=== PATIENT | female | born 1945 | race Caucasian/White ===

== ENCOUNTER 2020-01-04 17:52 | Observation (INO) ==
[2020-01-04 19:37] LABS: Basophils # 0.1 K/mcL (0.0-0.2); Basophils % 0.8 %; Eosinophils # 0.4 K/mcL (0.0-0.6); Eosinophils % 4.2 %; Hematocrit 41.8 % (35.3-44.9); Immature Granulocytes % 0.2 % (0-4); Lymphocytes # 2.2 K/mcL (0.6-4.6); Lymphocytes % 26.7 %; Mean Corpuscular HGB Conc 33.5 g/dL (31.6-35.5); Mean Corpuscular Hemoglobin 29.9 pg (28.0-33.3); Mean Corpuscular Volume 89.3 fL (83.0-100.0); Mean Platelet Volume 9.8 fL (9.4-12.4); Monocytes # 0.8 K/mcL (0.0-1.3); Neutrophils # 4.9 K/mcL (1.6-8.9); Platelet Count 322 K/mcL (140-400); Red Blood Count 4.68 M/mcL (3.82-4.97); Red Cell Distribution Width 13.9 % (11.5-14.5); Segmented Neutrophils % 59.1 %; White Blood Count 8.4 K/mcL (4.3-11.1)
[2020-01-04 19:45] LABS: Prothrombin Time 11.6 Seconds (9.4-12.1)
[2020-01-04 19:57] LABS: Alanine Aminotransferase 15 Units/L (7-52); Albumin/Globulin Ratio 1.3 (1.1-2.2); Alkaline Phosphatase 76 Units/L (34-104); Aspartate Amino Transferase 20 Units/L (13-39); BUN/Creatinine Ratio 16 (6-26); Bilirubin,Total 0.9 mg/dL (0.3-1.0); Blood Urea Nitrogen 15 mg/dL (8-23); Calcium 9.3 mg/dL (8.6-10.3); Carbon Dioxide 27 mEq/L (23-29); Chloride 99 mEq/L (98-107); Globulin 3.2 g/dL (2.4-3.5); Glucose 102 mg/dL (70-105); Osmolality,Calculated 285 (280-300); Potassium 3.1 mEq/L (3.5-5.1); Sodium 137 mEq/L (136-145); Total Protein 7.2 g/dL (6.4-8.9); eGFR For African Americans > 60 (> 60); eGFR For Non-African Americans > 60 (> 60)
[2020-01-04] MEDS ORDERED: Potassium Chloride Elixir 20 MEQ/15 ML UDC PO ONE (20:52)
[2020-01-04] MEDS ORDERED: Naloxone 0.4 MG/ML INJ IVP PRN (22:24)
[2020-01-04] MEDS ORDERED: Dextrose Gel 15 GM/37.5 ML TUBE PO PRN ×2 (22:28)
[2020-01-04] MEDS ORDERED: *HR* Dextrose 50 % in Water (Syg) 50 ML SYRINGE IVP PRN (22:28)
[2020-01-04] MEDS ORDERED: D5% in Water 1,000 ML IVC PRN (22:28)
[2020-01-05] MEDS: Pantoprazole 40 MG VIAL IVP SCH ×2 (00:21→06:57)
[2020-01-05] MEDS: Insulin LISPRO 300 UNITS/3 ML VIAL SQ SCH ×2 (00:22→06:52)
[2020-01-05 05:43] LABS: Hematocrit 40.5 % (35.3-44.9); Hemoglobin 13.2 g/dL (11.5-15.4); Mean Corpuscular HGB Conc 32.6 g/dL (31.6-35.5); Mean Corpuscular Hemoglobin 29.9 pg (28.0-33.3); Mean Corpuscular Volume 91.8 fL (83.0-100.0); Mean Platelet Volume 9.5 fL (9.4-12.4); Platelet Count 288 K/mcL (140-400); Red Blood Count 4.41 M/mcL (3.82-4.97); Red Cell Distribution Width 13.9 % (11.5-14.5); White Blood Count 6.2 K/mcL (4.3-11.1)
[2020-01-05 06:00] LABS: BUN/Creatinine Ratio 15 (6-26); Blood Urea Nitrogen 12 mg/dL (8-23); Calcium 9.3 mg/dL (8.6-10.3); Carbon Dioxide 30 mEq/L (23-29); Chloride 102 mEq/L (98-107); Glucose 127 mg/dL (70-105); Osmolality,Calculated 287 (280-300); Potassium 3.7 mEq/L (3.5-5.1); Sodium 138 mEq/L (136-145); eGFR For African Americans > 60 (> 60); eGFR For Non-African Americans > 60 (> 60)
[2020-01-05] MEDS ORDERED: Propofol 500 MG/50 ML INFUS..BTL ONE (09:31)
[2020-01-05] MEDS ORDERED: Lidocaine -MPF 2% 2 ML VIAL ONE (09:33)
[2020-01-05 10:58] VITALS: BP 169/90
[2020-01-05] MEDS ORDERED: amLODIPine 5 MG TABLET PO SCH (11:00)
[2020-01-05] MEDS ORDERED: Aspirin Enteric Coated 81 MG Tablet PO SCH (11:15)
[2020-01-05] MEDS ORDERED: Furosemide 20 MG TABLET PO SCH (11:15)
[2020-01-05] MEDS ORDERED: Isosorbide MONOnitrate (24 HR) 30 MG TAB.ER.24H PO SCH (11:15)
[2020-01-05] MEDS ORDERED: NON-FORMULARY MEDICATION 1 EACH EACH (Pantoprazole Sodium [Protonix] 40 MG) PO SCH (11:15)
[2020-01-05] MEDS ORDERED: FLUoxetine 20 MG CAPSULE PO SCH (11:15)
== END 2020-01-05 14:18 | disposition home or self-care (01) ==
LOC: EMEROOARM 17:52 → 3ANU 17:52 → SUATTDRO 23:07 → 3ANU 01-05 00:05
PROVIDERS: ADMIT Family Medicine; ATTEND Internal Medicine

== ENCOUNTER 2021-08-26 20:17 | Inpatient (IN) ==
[2021-08-26] MEDS ORDERED: Ipratropium/Albuterol Neb 3 ML IH ONE (20:27)
[2021-08-26 20:51] LABS: Basophils % 0.2 %; Eosinophils # 0.1 K/mcL (0.0-0.6); Hemoglobin 12.6 g/dL (11.5-15.4); Immature Granulocytes % 0.8 % (0-4); Lymphocytes # 0.9 K/mcL (0.6-4.6); Lymphocytes % 9.9 %; Mean Corpuscular HGB Conc 32.3 g/dL (31.6-35.5); Mean Corpuscular Hemoglobin 28.7 pg (28.0-33.3); Mean Corpuscular Volume 88.8 fL (83.0-100.0); Mean Platelet Volume 9.5 fL (9.4-12.4); Monocytes # 0.4 K/mcL (0.0-1.3); Monocytes % 5.1 %; Neutrophils # 7.2 K/mcL (1.6-8.9); Platelet Count 314 K/mcL (140-400); Red Blood Count 4.39 M/mcL (3.82-4.97); Red Cell Distribution Width 13.7 % (11.5-14.5); White Blood Count 8.6 K/mcL (4.3-11.1)
[2021-08-26 21:06] LABS: BUN/Creatinine Ratio 19 (6-26); Blood Urea Nitrogen 17 mg/dL (8-23); Calcium 8.9 mg/dL (8.6-10.3); Carbon Dioxide 28 mEq/L (23-29); Chloride 92 mEq/L (98-107); Glucose 105 mg/dL (70-105); Osmolality,Calculated 278 (280-300); Potassium 3.7 mEq/L (3.5-5.1); Sodium 133 mEq/L (136-145); Troponin I 0.03 ng/mL (< 0.04); eGFR For African Americans > 60 (> 60); eGFR For Non-African Americans > 60 (> 60)
[2021-08-26] MEDS ORDERED: Naloxone 0.4 MG/ML INJ IVP PRN (22:12)
[2021-08-26] MEDS ORDERED: *HR* OxyCODONE Immed Rel 5 MG TABLET PO PRN (22:12)
[2021-08-26] MEDS ORDERED: Dextrose Gel 15 GM/37.5 ML TUBE PO PRN ×2 (22:14)
[2021-08-26] MEDS ORDERED: D5% in Water 1,000 ML IVC PRN (22:14)
[2021-08-26 23:09] LABS: Amorphous Sediment,Urine Few per hpf (None-Few); Bacteria,Urine Few per hpf (None-Few); Bilirubin,Urine Small (Negative); Blood,Urine Small (Negative); Clarity,Urine Turbid (Clear); Color,Urine Yellow (Yellow); Glucose,Urine (UA) Normal (Normal); Hyaline Casts,Urine Few per lpf (None Seen); Ketones,Urine 10 mg/dL (Negative); Leukocyte Esterase,Urine Negative (Negative); Mucus,Urine Few per lpf (None-Few); Nitrite,Urine Negative (Negative); Protein,Urine 100 mg/dL (Neg-Trace); Specific Gravity,Urine 1.029 (1.010-1.025); Squamous Epithelial Cell,Urine Few per hpf (None-Few); Urobilinogen,Urine >=8.0 mg/dL (Normal)
[2021-08-27 07:22] LABS: Hematocrit 35.5 % (35.3-44.9); Hemoglobin 11.8 g/dL (11.5-15.4); Mean Corpuscular HGB Conc 33.2 g/dL (31.6-35.5); Mean Corpuscular Hemoglobin 29.5 pg (28.0-33.3); Mean Corpuscular Volume 88.8 fL (83.0-100.0); Mean Platelet Volume 9.9 fL (9.4-12.4); Platelet Count 281 K/mcL (140-400); Red Cell Distribution Width 13.5 % (11.5-14.5); White Blood Count 5.9 K/mcL (4.3-11.1)
[2021-08-27 07:31] LABS: INR 1.4; Prothrombin Time 15.8 Seconds (9.4-12.1)
[2021-08-27] MEDS: Insulin LISPRO 300 UNITS/3 ML VIAL SUBQ SCH ×5 (08:02→20:20)
[2021-08-27] MEDS: *HR* Enoxaparin 40 MG/0.4 ML SYRINGE SQ SCH ×2 (08:03→10:44)
[2021-08-27] MEDS ORDERED: Furosemide 40 MG TABLET PO SCH (09:00)
[2021-08-27] MEDS ORDERED: Dexamethasone Sodium Phos/PF 10 MG/ML VIAL IVP SCH (09:00)
[2021-08-27 09:54] LABS: Chol/HDL Ratio 2.2 (0-4.9); Magnesium 2.2 mg/dL (1.6-2.6); Phosphorous 4.3 mg/dL (2.7-4.5)
[2021-08-27] MEDS: Aspirin Enteric Coated 81 MG Tablet PO SCH (10:56)
[2021-08-27] MEDS ORDERED: Nitroglycerin 0.4 MG TAB.SUBL SL PRN (14:45)
[2021-08-27] MEDS ORDERED: NON-FORMULARY MEDICATION 1 EACH EACH (Ondansetron Hcl [Ondansetron Hcl] 4 MG Tablet) PO PRN (16:46)
[2021-08-27] MEDS ORDERED: Isosorbide MONOnitrate (24 HR) 30 MG TAB.ER.24H PO PRN (16:46)
[2021-08-27] MEDS: *HR* Labetalol 20 MG/4 ML SYRINGE IVP PRN (17:08)
[2021-08-27] MEDS: Acetaminophen 325 MG TABLET PO PRN (17:09)
[2021-08-28] MEDS ORDERED: *HR* LORazepam 2 MG/ML VIAL IVP ONE (06:09)
[2021-08-28 06:35] LABS: Hematocrit 36.6 % (35.3-44.9); Hemoglobin 11.8 g/dL (11.5-15.4); Mean Corpuscular HGB Conc 32.2 g/dL (31.6-35.5); Mean Corpuscular Hemoglobin 29.1 pg (28.0-33.3); Mean Corpuscular Volume 90.4 fL (83.0-100.0); Mean Platelet Volume 10.3 fL (9.4-12.4); Platelet Count 334 K/mcL (140-400); Red Blood Count 4.05 M/mcL (3.82-4.97); Red Cell Distribution Width 13.6 % (11.5-14.5)
[2021-08-28 06:59] LABS: Potassium 5.2 mEq/L (3.5-5.1)
[2021-08-28] MEDS ORDERED: *HR* Heparin 5,000 UNIT/ML VIAL IVP ONE (07:56)
[2021-08-28] MEDS ORDERED: *HR* Heparin 5,000 UNIT/ML VIAL IVP PRN (07:56)
[2021-08-28] MEDS ORDERED: SODIUM ZIRCONIUM CYCLOSILICATE 5 GM POWD.PACK PO ONE (08:11)
[2021-08-28] MEDS: Insulin LISPRO 300 UNITS/3 ML VIAL SUBQ SCH ×4 (08:18→19:56)
[2021-08-28 09:09] LABS: Hematocrit 36.4 % (35.3-44.9); Hemoglobin 11.8 g/dL (11.5-15.4); Mean Corpuscular HGB Conc 32.4 g/dL (31.6-35.5); Mean Corpuscular Hemoglobin 28.7 pg (28.0-33.3); Mean Corpuscular Volume 88.6 fL (83.0-100.0); Mean Platelet Volume 9.4 fL (9.4-12.4); Platelet Count 372 K/mcL (140-400); Red Blood Count 4.11 M/mcL (3.82-4.97); Red Cell Distribution Width 13.5 % (11.5-14.5); White Blood Count 9.2 K/mcL (4.3-11.1)
[2021-08-28 09:17] LABS: Heparin anti-factor XA UFH 0.04 IU/mL (0.30-0.70); INR 1.3; Prothrombin Time 14.1 Seconds (9.4-12.1)
[2021-08-28] MEDS: Aspirin Enteric Coated 81 MG Tablet PO SCH (10:05)
[2021-08-28] MEDS: Dexamethasone Sodium Phos/PF 10 MG/ML VIAL IVP SCH (10:05)
[2021-08-28] MEDS: amLODIPine 5 MG TABLET PO SCH (10:06)
[2021-08-28] MEDS: Heparin 25,000UNIT/250ML 1/2NS 25,000 UNIT/250 ML IV.SOLN IVC SCH (10:45)
[2021-08-28 17:20] LABS: BUN/Creatinine Ratio 37 (6-26); Blood Urea Nitrogen 38 mg/dL (8-23); Calcium 8.7 mg/dL (8.6-10.3); Carbon Dioxide 27 mEq/L (23-29); Chloride 96 mEq/L (98-107); Glucose 178 mg/dL (70-105); Osmolality,Calculated 291 (280-300); Sodium 134 mEq/L (136-145); eGFR For African Americans > 60 (> 60); eGFR For Non-African Americans 52 (> 60)
[2021-08-29 00:45] LABS: Basophils % 0.1 %; Hematocrit 35.8 % (35.3-44.9); Hemoglobin 11.6 g/dL (11.5-15.4); Immature Granulocytes % 0.9 % (0-4); Lymphocytes # 0.5 K/mcL (0.6-4.6); Lymphocytes % 6.1 %; Mean Corpuscular HGB Conc 32.4 g/dL (31.6-35.5); Mean Corpuscular Hemoglobin 28.6 pg (28.0-33.3); Mean Corpuscular Volume 88.2 fL (83.0-100.0); Mean Platelet Volume 9.5 fL (9.4-12.4); Monocytes # 0.5 K/mcL (0.0-1.3); Monocytes % 6.1 %; Neutrophils # 7.3 K/mcL (1.6-8.9); Platelet Count 429 K/mcL (140-400); Red Blood Count 4.06 M/mcL (3.82-4.97); Red Cell Distribution Width 13.5 % (11.5-14.5); Segmented Neutrophils % 86.8 %; White Blood Count 8.5 K/mcL (4.3-11.1)
[2021-08-29 01:00] LABS: BUN/Creatinine Ratio 38 (6-26); Blood Urea Nitrogen 34 mg/dL (8-23); Calcium 8.7 mg/dL (8.6-10.3); Carbon Dioxide 28 mEq/L (23-29); Chloride 98 mEq/L (98-107); Glucose 151 mg/dL (70-105); Osmolality,Calculated 293 (280-300); Potassium 3.9 mEq/L (3.5-5.1); Sodium 136 mEq/L (136-145); eGFR For African Americans > 60 (> 60); eGFR For Non-African Americans > 60 (> 60)
[2021-08-29] MEDS: Heparin 25,000UNIT/250ML 1/2NS 25,000 UNIT/250 ML IV.SOLN IVC SCH (07:45)
[2021-08-29] MEDS: Insulin LISPRO 300 UNITS/3 ML VIAL SUBQ SCH ×4 (07:45→21:32)
[2021-08-29] MEDS: Dexamethasone Sodium Phos/PF 10 MG/ML VIAL IVP SCH (10:05)
[2021-08-29] MEDS: Aspirin Enteric Coated 81 MG Tablet PO SCH (10:06)
[2021-08-29] MEDS: amLODIPine 5 MG TABLET PO SCH (10:06)
[2021-08-29] MEDS ORDERED: Saline Nasal Spray 44 ML BOTTLE NS PRN (10:21)
[2021-08-29] MEDS: Acetaminophen 325 MG TABLET PO PRN (10:32)
[2021-08-30] MEDS: Heparin 25,000UNIT/250ML 1/2NS 25,000 UNIT/250 ML IV.SOLN IVC SCH ×2 (03:45→10:18)
[2021-08-30] MEDS ORDERED: Isovue-370 500 ML BOTTLE IVP ONE (07:46)
[2021-08-30] MEDS: Insulin LISPRO 300 UNITS/3 ML VIAL SUBQ SCH ×4 (08:14→21:36)
[2021-08-30] MEDS: Dexamethasone Sodium Phos/PF 10 MG/ML VIAL IVP SCH (08:27)
[2021-08-30] MEDS: Aspirin Enteric Coated 81 MG Tablet PO SCH (08:27)
[2021-08-30] MEDS: amLODIPine 5 MG TABLET PO SCH (08:27)
[2021-08-30 08:45] LABS: Basophils % 0.1 %; Eosinophils # 0.2 K/mcL (0.0-0.6); Eosinophils % 2.3 %; Hematocrit 36.7 % (35.3-44.9); Hemoglobin 11.8 g/dL (11.5-15.4); Immature Granulocytes % 1.4 % (0-4); Lymphocytes # 0.8 K/mcL (0.6-4.6); Mean Corpuscular HGB Conc 32.2 g/dL (31.6-35.5); Mean Corpuscular Volume 90.2 fL (83.0-100.0); Mean Platelet Volume 9.5 fL (9.4-12.4); Monocytes # 0.4 K/mcL (0.0-1.3); Monocytes % 4.3 %; Neutrophils # 6.7 K/mcL (1.6-8.9); Platelet Count 419 K/mcL (140-400); Red Blood Count 4.07 M/mcL (3.82-4.97); Red Cell Distribution Width 13.8 % (11.5-14.5); Segmented Neutrophils % 81.9 %; White Blood Count 8.1 K/mcL (4.3-11.1)
[2021-08-30] MEDS ORDERED: *HR* LORazepam 2 MG/ML VIAL IVP STA (08:45)
[2021-08-30] MEDS ORDERED: *HR* LORazepam 2 MG/ML VIAL ONE (08:48)
[2021-08-30 09:08] LABS: BUN/Creatinine Ratio 39 (6-26); Blood Urea Nitrogen 29 mg/dL (8-23); Calcium 8.6 mg/dL (8.6-10.3); Carbon Dioxide 29 mEq/L (23-29); Chloride 102 mEq/L (98-107); Glucose 91 mg/dL (70-105); Osmolality,Calculated 295 (280-300); Potassium 3.7 mEq/L (3.5-5.1); Sodium 140 mEq/L (136-145); eGFR For African Americans > 60 (> 60); eGFR For Non-African Americans > 60 (> 60)
[2021-08-30] MEDS: Sennosides/Docusate Sodium TABLET PO SCH (17:45)
[2021-08-31 05:41] LABS: Basophils % 0.1 %; Eosinophils % 0.1 %; Hematocrit 36.6 % (35.3-44.9); Hemoglobin 11.6 g/dL (11.5-15.4); Immature Granulocytes % 1.5 % (0-4); Lymphocytes # 0.9 K/mcL (0.6-4.6); Lymphocytes % 7.2 %; Mean Corpuscular HGB Conc 31.7 g/dL (31.6-35.5); Mean Corpuscular Hemoglobin 28.5 pg (28.0-33.3); Mean Corpuscular Volume 89.9 fL (83.0-100.0); Mean Platelet Volume 9.3 fL (9.4-12.4); Monocytes # 0.5 K/mcL (0.0-1.3); Monocytes % 4.1 %; Neutrophils # 10.8 K/mcL (1.6-8.9); Platelet Count 429 K/mcL (140-400); Red Blood Count 4.07 M/mcL (3.82-4.97); Red Cell Distribution Width 13.6 % (11.5-14.5)
[2021-08-31 05:44] LABS: White Blood Count 12.4 K/mcL (4.3-11.1)
[2021-08-31 05:56] LABS: BUN/Creatinine Ratio 36 (6-26); Blood Urea Nitrogen 29 mg/dL (8-23); Calcium 8.7 mg/dL (8.6-10.3); Carbon Dioxide 26 mEq/L (23-29); Chloride 102 mEq/L (98-107); Glucose 141 mg/dL (70-105); Osmolality,Calculated 294 (280-300); Sodium 138 mEq/L (136-145); eGFR For African Americans > 60 (> 60); eGFR For Non-African Americans > 60 (> 60)
[2021-08-31] MEDS: Heparin 25,000UNIT/250ML 1/2NS 25,000 UNIT/250 ML IV.SOLN IVC SCH (06:00)
[2021-08-31] MEDS: Aspirin Enteric Coated 81 MG Tablet PO SCH (07:41)
[2021-08-31] MEDS: Insulin LISPRO 300 UNITS/3 ML VIAL SUBQ SCH ×4 (07:42→19:45)
[2021-08-31] MEDS: amLODIPine 5 MG TABLET PO SCH (07:42)
[2021-08-31] MEDS: Sennosides/Docusate Sodium TABLET PO SCH (07:42)
[2021-08-31] MEDS: Dexamethasone Sodium Phos/PF 10 MG/ML VIAL IVP SCH (07:42)
[2021-08-31] MEDS: *HR* Labetalol 20 MG/4 ML SYRINGE IVP PRN (11:47)
[2021-09-01 03:25] LABS: Basophils % 0.1 %; Eosinophils # 0.1 K/mcL (0.0-0.6); Eosinophils % 0.4 %; Hematocrit 40.8 % (35.3-44.9); Immature Granulocytes % 1.3 % (0-4); Lymphocytes # 0.9 K/mcL (0.6-4.6); Mean Corpuscular HGB Conc 33.1 g/dL (31.6-35.5); Mean Corpuscular Hemoglobin 29.6 pg (28.0-33.3); Mean Corpuscular Volume 89.5 fL (83.0-100.0); Mean Platelet Volume 9.3 fL (9.4-12.4); Monocytes # 0.6 K/mcL (0.0-1.3); Monocytes % 3.7 %; Neutrophils # 13.3 K/mcL (1.6-8.9); Nucleated Red Blood Cells 0.2 /100 WBC (0); Platelet Count 526 K/mcL (140-400); Red Blood Count 4.56 M/mcL (3.82-4.97); Red Cell Distribution Width 13.8 % (11.5-14.5); Segmented Neutrophils % 88.5 %; White Blood Count 15.1 K/mcL (4.3-11.1)
[2021-09-01 03:27] LABS: Hemoglobin 13.5 g/dL (11.5-15.4)
[2021-09-01 03:52] LABS: Alanine Aminotransferase 41 Units/L (7-52); Alkaline Phosphatase 86 Units/L (34-104); Aspartate Amino Transferase 46 Units/L (13-39); BUN/Creatinine Ratio 35 (6-26); Bilirubin,Total 1.3 mg/dL (0.3-1.0); Blood Urea Nitrogen 27 mg/dL (8-23); Calcium 8.8 mg/dL (8.6-10.3); Carbon Dioxide 26 mEq/L (23-29); Chloride 103 mEq/L (98-107); Globulin 3.1 g/dL (2.4-3.5); Glucose 138 mg/dL (70-105); Magnesium 2.2 mg/dL (1.6-2.6); Osmolality,Calculated 299 (280-300); Phosphorous 3.6 mg/dL (2.7-4.5); Potassium 3.8 mEq/L (3.5-5.1); Sodium 141 mEq/L (136-145); Total Protein 6.1 g/dL (6.4-8.9); eGFR For African Americans > 60 (> 60); eGFR For Non-African Americans > 60 (> 60)
[2021-09-01] MEDS ORDERED: *HR* LORazepam 2 MG/ML VIAL IVP ONE (05:09)
[2021-09-01] MEDS: Heparin 25,000UNIT/250ML 1/2NS 25,000 UNIT/250 ML IV.SOLN IVC SCH ×2 (08:18→17:04)
[2021-09-01] MEDS: amLODIPine 5 MG TABLET PO SCH (09:17)
[2021-09-01] MEDS: Insulin LISPRO 300 UNITS/3 ML VIAL SUBQ SCH ×4 (09:17→21:27)
[2021-09-01] MEDS: Sennosides/Docusate Sodium TABLET PO SCH (09:17)
[2021-09-01] MEDS: Aspirin Enteric Coated 81 MG Tablet PO SCH (09:17)
[2021-09-01] MEDS: Dexamethasone Sodium Phos/PF 10 MG/ML VIAL IVP SCH (09:30)
[2021-09-01] MEDS ORDERED: *HR* LORazepam 2 MG/ML VIAL IVP PRN (11:38)
[2021-09-01] MEDS: *HR* LORazepam 2 MG/ML VIAL IVP PRN (13:33)
[2021-09-01] MEDS: Dexmedetomidine HCl 400 MCG/100 ML MLS IVC SCH (15:00)
[2021-09-02 02:26] LABS: Basophils % 0.1 %; Hematocrit 39.8 % (35.3-44.9); Hemoglobin 12.9 g/dL (11.5-15.4); Immature Granulocytes % 0.8 % (0-4); Lymphocytes # 0.8 K/mcL (0.6-4.6); Lymphocytes % 5.3 %; Mean Corpuscular HGB Conc 32.4 g/dL (31.6-35.5); Mean Corpuscular Hemoglobin 29.5 pg (28.0-33.3); Mean Corpuscular Volume 90.9 fL (83.0-100.0); Mean Platelet Volume 9.5 fL (9.4-12.4); Monocytes # 0.5 K/mcL (0.0-1.3); Monocytes % 3.3 %; Neutrophils # 13.1 K/mcL (1.6-8.9); Platelet Count 408 K/mcL (140-400); Red Blood Count 4.38 M/mcL (3.82-4.97); Red Cell Distribution Width 14.2 % (11.5-14.5); Segmented Neutrophils % 90.5 %; White Blood Count 14.5 K/mcL (4.3-11.1)
[2021-09-02 02:46] LABS: Alanine Aminotransferase 33 Units/L (7-52); Albumin 3.1 g/dL (3.5-5.7); Albumin/Globulin Ratio 1.1 (1.1-2.2); Alkaline Phosphatase 83 Units/L (34-104); Aspartate Amino Transferase 29 Units/L (13-39); BUN/Creatinine Ratio 42 (6-26); Bilirubin,Total 1.3 mg/dL (0.3-1.0); Blood Urea Nitrogen 33 mg/dL (8-23); Calcium 8.8 mg/dL (8.6-10.3); Carbon Dioxide 25 mEq/L (23-29); Chloride 105 mEq/L (98-107); Globulin 2.8 g/dL (2.4-3.5); Glucose 159 mg/dL (70-105); Magnesium 2.4 mg/dL (1.6-2.6); Osmolality,Calculated 303 (280-300); Phosphorous 4.6 mg/dL (2.7-4.5); Potassium 4.7 mEq/L (3.5-5.1); Sodium 141 mEq/L (136-145); Total Protein 5.9 g/dL (6.4-8.9); eGFR For African Americans > 60 (> 60); eGFR For Non-African Americans > 60 (> 60)
[2021-09-02] MEDS: Sennosides/Docusate Sodium TABLET PO SCH (08:57)
[2021-09-02] MEDS: amLODIPine 5 MG TABLET PO SCH (08:58)
[2021-09-02] MEDS: Aspirin Enteric Coated 81 MG Tablet PO SCH (08:58)
[2021-09-02] MEDS: Dexamethasone Sodium Phos/PF 10 MG/ML VIAL IVP SCH (09:01)
[2021-09-02] MEDS: Insulin LISPRO 300 UNITS/3 ML VIAL SUBQ SCH ×4 (09:01→21:15)
[2021-09-02] MEDS: Heparin 25,000UNIT/250ML 1/2NS 25,000 UNIT/250 ML IV.SOLN IVC SCH (09:02)
[2021-09-02] MEDS: Dexmedetomidine HCl 400 MCG/100 ML MLS IVC SCH (10:22)
[2021-09-02] MEDS: *HR* LORazepam 2 MG/ML VIAL IVP PRN ×2 (11:26→19:54)
[2021-09-02] MEDS: *HR* Heparin 5,000 UNIT/ML VIAL IVP PRN (17:50)
[2021-09-02] MEDS ORDERED: Morphine Sulfate 2 MG/ML SYRINGE IVP ONE (21:08)
[2021-09-03 01:46] LABS: Basophils % 0.1 %; Hematocrit 40.4 % (35.3-44.9); Hemoglobin 12.7 g/dL (11.5-15.4); Immature Granulocytes % 1.2 % (0-4); Lymphocytes # 0.8 K/mcL (0.6-4.6); Lymphocytes % 4.8 %; Mean Corpuscular HGB Conc 31.4 g/dL (31.6-35.5); Mean Corpuscular Hemoglobin 28.6 pg (28.0-33.3); Mean Platelet Volume 9.3 fL (9.4-12.4); Monocytes # 0.8 K/mcL (0.0-1.3); Monocytes % 4.6 %; Neutrophils # 14.6 K/mcL (1.6-8.9); Platelet Count 414 K/mcL (140-400); Red Blood Count 4.44 M/mcL (3.82-4.97); Red Cell Distribution Width 14.3 % (11.5-14.5); Segmented Neutrophils % 89.3 %; White Blood Count 16.4 K/mcL (4.3-11.1)
[2021-09-03] MEDS: Heparin 25,000UNIT/250ML 1/2NS 25,000 UNIT/250 ML IV.SOLN IVC SCH ×2 (02:16→14:09)
[2021-09-03] MEDS: *HR* LORazepam 2 MG/ML VIAL IVP PRN ×3 (02:22→14:41)
[2021-09-03 02:31] LABS: Alanine Aminotransferase 31 Units/L (7-52); Albumin 3.1 g/dL (3.5-5.7); Albumin/Globulin Ratio 1.2 (1.1-2.2); Alkaline Phosphatase 88 Units/L (34-104); Aspartate Amino Transferase 28 Units/L (13-39); BUN/Creatinine Ratio 44 (6-26); Bilirubin,Total 1.3 mg/dL (0.3-1.0); Blood Urea Nitrogen 34 mg/dL (8-23); Calcium 8.7 mg/dL (8.6-10.3); Carbon Dioxide 25 mEq/L (23-29); Chloride 107 mEq/L (98-107); Globulin 2.6 g/dL (2.4-3.5); Glucose 155 mg/dL (70-105); Magnesium 2.4 mg/dL (1.6-2.6); Osmolality,Calculated 305 (280-300); Phosphorous 4.1 mg/dL (2.7-4.5); Potassium 4.5 mEq/L (3.5-5.1); Sodium 142 mEq/L (136-145); Total Protein 5.7 g/dL (6.4-8.9); eGFR For African Americans > 60 (> 60); eGFR For Non-African Americans > 60 (> 60)
[2021-09-03] MEDS: Insulin LISPRO 300 UNITS/3 ML VIAL SUBQ SCH ×4 (07:36→20:34)
[2021-09-03] MEDS: Aspirin Enteric Coated 81 MG Tablet PO SCH (07:44)
[2021-09-03] MEDS: amLODIPine 5 MG TABLET PO SCH (07:44)
[2021-09-03] MEDS: Sennosides/Docusate Sodium TABLET PO SCH (07:45)
[2021-09-03] MEDS: Dexamethasone Sodium Phos/PF 10 MG/ML VIAL IVP SCH (07:45)
[2021-09-03] MEDS: Morphine Sulfate 2 MG/ML SYRINGE IVP PRN (14:41)
[2021-09-04 02:08] LABS: Alanine Aminotransferase 27 Units/L (7-52); Albumin 3.2 g/dL (3.5-5.7); Albumin/Globulin Ratio 1.2 (1.1-2.2); Alkaline Phosphatase 94 Units/L (34-104); Aspartate Amino Transferase 28 Units/L (13-39); BUN/Creatinine Ratio 51 (6-26); Bilirubin,Total 1.4 mg/dL (0.3-1.0); Blood Urea Nitrogen 36 mg/dL (8-23); Calcium 8.9 mg/dL (8.6-10.3); Carbon Dioxide 25 mEq/L (23-29); Chloride 108 mEq/L (98-107); Globulin 2.7 g/dL (2.4-3.5); Glucose 135 mg/dL (70-105); Magnesium 2.5 mg/dL (1.6-2.6); Osmolality,Calculated 306 (280-300); Phosphorous 4.2 mg/dL (2.7-4.5); Potassium 4.9 mEq/L (3.5-5.1); Sodium 143 mEq/L (136-145); Total Protein 5.9 g/dL (6.4-8.9); eGFR For African Americans > 60 (> 60); eGFR For Non-African Americans > 60 (> 60)
[2021-09-04 04:25] LABS: Basophils % 0.1 %; Hematocrit 41.1 % (35.3-44.9); Hemoglobin 13.1 g/dL (11.5-15.4); Lymphocytes % 5.9 %; Mean Corpuscular HGB Conc 31.9 g/dL (31.6-35.5); Mean Corpuscular Hemoglobin 29.6 pg (28.0-33.3); Mean Corpuscular Volume 92.8 fL (83.0-100.0); Mean Platelet Volume 9.8 fL (9.4-12.4); Monocytes % 6.1 %; Neutrophils # 14.5 K/mcL (1.6-8.9); Nucleated Red Blood Cells 0.1 /100 WBC (0); Platelet Count 380 K/mcL (140-400); Red Blood Count 4.43 M/mcL (3.82-4.97); Red Cell Distribution Width 14.6 % (11.5-14.5); Segmented Neutrophils % 86.9 %; White Blood Count 16.7 K/mcL (4.3-11.1)
[2021-09-04] MEDS: Heparin 25,000UNIT/250ML 1/2NS 25,000 UNIT/250 ML IV.SOLN IVC SCH (05:46)
[2021-09-04] MEDS: Insulin LISPRO 300 UNITS/3 ML VIAL SUBQ SCH ×5 (08:05→23:56)
[2021-09-04] MEDS: Dexamethasone Sodium Phos/PF 10 MG/ML VIAL IVP SCH (08:07)
[2021-09-04] MEDS: Furosemide 20 MG/2 ML VIAL IVP SCH (08:07)
[2021-09-04] MEDS: amLODIPine 5 MG TABLET PO SCH (08:21)
[2021-09-04] MEDS: Aspirin Enteric Coated 81 MG Tablet PO SCH (08:21)
[2021-09-04] MEDS: Sennosides/Docusate Sodium TABLET PO SCH (08:22)
[2021-09-04] MEDS: Morphine Sulfate 2 MG/ML SYRINGE IVP PRN (08:24)
[2021-09-04] MEDS: *HR* LORazepam 2 MG/ML VIAL IVP PRN (08:25)
[2021-09-04] MEDS ORDERED: D10% in Water 500 ML IVC PRN (12:32)
[2021-09-04] MEDS ORDERED: Lidocaine -MPF 1% 5 ML AMPUL INFILT ONE (12:55)
[2021-09-04] MEDS: Dexmedetomidine HCl 400 MCG/100 ML MLS IVC SCH (16:08)
[2021-09-04] MEDS ORDERED: Clinimix E 5%-15% SOLUTION 2,000 ML with MVI, adult with vitamin K 10 ML IVC SCH (17:00)
[2021-09-05] MEDS: *HR* Labetalol 20 MG/4 ML SYRINGE IVP PRN (04:01)
[2021-09-05] MEDS: Insulin LISPRO 300 UNITS/3 ML VIAL SUBQ SCH ×5 (04:17→20:59)
[2021-09-05 04:30] LABS: Basophils % 0.1 %; Eosinophils % 0.1 %; Hematocrit 40.6 % (35.3-44.9); Hemoglobin 12.9 g/dL (11.5-15.4); Immature Granulocytes % 0.8 % (0-4); Lymphocytes # 0.7 K/mcL (0.6-4.6); Lymphocytes % 5.1 %; Mean Corpuscular HGB Conc 31.8 g/dL (31.6-35.5); Mean Corpuscular Hemoglobin 29.7 pg (28.0-33.3); Mean Corpuscular Volume 93.3 fL (83.0-100.0); Mean Platelet Volume 10.7 fL (9.4-12.4); Monocytes % 6.7 %; Neutrophils # 12.6 K/mcL (1.6-8.9); Platelet Count 282 K/mcL (140-400); Red Blood Count 4.35 M/mcL (3.82-4.97); Red Cell Distribution Width 14.7 % (11.5-14.5); Segmented Neutrophils % 87.2 %; White Blood Count 14.5 K/mcL (4.3-11.1)
[2021-09-05 04:55] LABS: Alanine Aminotransferase 29 Units/L (7-52); Albumin 3.2 g/dL (3.5-5.7); Albumin/Globulin Ratio 1.3 (1.1-2.2); Alkaline Phosphatase 84 Units/L (34-104); Aspartate Amino Transferase 24 Units/L (13-39); BUN/Creatinine Ratio 59 (6-26); Bilirubin,Total 1.4 mg/dL (0.3-1.0); Blood Urea Nitrogen 43 mg/dL (8-23); Carbon Dioxide 29 mEq/L (23-29); Chloride 107 mEq/L (98-107); Globulin 2.5 g/dL (2.4-3.5); Glucose 137 mg/dL (70-105); Magnesium 2.6 mg/dL (1.6-2.6); Osmolality,Calculated 313 (280-300); Phosphorous 3.8 mg/dL (2.7-4.5); Potassium 4.3 mEq/L (3.5-5.1); Sodium 145 mEq/L (136-145); Total Protein 5.7 g/dL (6.4-8.9); eGFR For African Americans > 60 (> 60); eGFR For Non-African Americans > 60 (> 60)
[2021-09-05] MEDS: Aspirin Enteric Coated 81 MG Tablet PO SCH (08:14)
[2021-09-05] MEDS: Sennosides/Docusate Sodium TABLET PO SCH (08:15)
[2021-09-05] MEDS: amLODIPine 5 MG TABLET PO SCH (08:15)
[2021-09-05] MEDS: Heparin 25,000UNIT/250ML 1/2NS 25,000 UNIT/250 ML IV.SOLN IVC SCH (08:48)
[2021-09-05] MEDS: Dexamethasone Sodium Phos/PF 10 MG/ML VIAL IVP SCH (08:52)
[2021-09-05] MEDS: Dexmedetomidine HCl 400 MCG/100 ML MLS IVC SCH ×2 (08:56→23:01)
[2021-09-05] MEDS: Furosemide 20 MG/2 ML VIAL IVP SCH (09:01)
[2021-09-05] MEDS: Morphine Sulfate 2 MG/ML SYRINGE IVP PRN ×2 (13:53→21:03)
[2021-09-05] MEDS: *HR* LORazepam 2 MG/ML VIAL IVP PRN (14:58)
[2021-09-05] MEDS ORDERED: Clinimix E 5%-15% SOLUTION 2,000 ML with MVI, adult with vitamin K 10 ML IVC SCH (17:00)
[2021-09-06] MEDS: Insulin LISPRO 300 UNITS/3 ML VIAL SUBQ SCH ×8 (01:53→23:13)
[2021-09-06 04:39] LABS: BUN/Creatinine Ratio 59 (6-26); Blood Urea Nitrogen 43 mg/dL (8-23); Calcium 9.3 mg/dL (8.6-10.3); Carbon Dioxide 31 mEq/L (23-29); Chloride 104 mEq/L (98-107); Glucose 152 mg/dL (70-105); Magnesium 2.5 mg/dL (1.6-2.6); Osmolality,Calculated 310 (280-300); Phosphorous 3.5 mg/dL (2.7-4.5); Potassium 4.5 mEq/L (3.5-5.1); Sodium 143 mEq/L (136-145); eGFR For African Americans > 60 (> 60); eGFR For Non-African Americans > 60 (> 60)
[2021-09-06] MEDS: Dexamethasone Sodium Phos/PF 10 MG/ML VIAL IVP SCH (08:21)
[2021-09-06] MEDS: Furosemide 20 MG/2 ML VIAL IVP SCH (08:21)
[2021-09-06] MEDS: Morphine Sulfate 2 MG/ML SYRINGE IVP PRN ×2 (08:22→14:17)
[2021-09-06] MEDS: Aspirin Enteric Coated 81 MG Tablet PO SCH (11:07)
[2021-09-06] MEDS: amLODIPine 5 MG TABLET PO SCH (11:07)
[2021-09-06] MEDS: Sennosides/Docusate Sodium TABLET PO SCH (11:08)
[2021-09-06] MEDS: Dexmedetomidine HCl 400 MCG/100 ML MLS IVC SCH (14:03)
[2021-09-06] MEDS: Heparin 25,000UNIT/250ML 1/2NS 25,000 UNIT/250 ML IV.SOLN IVC SCH (15:20)
[2021-09-06 15:31] LABS: Basophils % 0.2 %; Eosinophils % 0.1 %; Hematocrit 46.1 % (35.3-44.9); Hemoglobin 12.5 g/dL (11.5-15.4); Immature Granulocytes % 1.3 % (0-4); Lymphocytes # 0.5 K/mcL (0.6-4.6); Lymphocytes % 3.4 %; Mean Corpuscular HGB Conc 27.1 g/dL (31.6-35.5); Mean Corpuscular Hemoglobin 29.4 pg (28.0-33.3); Mean Platelet Volume 11.1 fL (9.4-12.4); Monocytes # 0.3 K/mcL (0.0-1.3); Monocytes % 2.1 %; Platelet Count 194 K/mcL (140-400); Red Blood Count 4.25 M/mcL (3.82-4.97); Red Cell Distribution Width 15.7 % (11.5-14.5); Segmented Neutrophils % 92.9 %; White Blood Count 14.3 K/mcL (4.3-11.1)
[2021-09-06 15:34] LABS: Mean Corpuscular Volume 108.5 fL (83.0-100.0); Neutrophils # 13.3 K/mcL (1.6-8.9)
[2021-09-06 15:54] LABS: Platelet Estimate Normal (Normal)
[2021-09-06 15:55] LABS: Large Platelets Present (Not Present)
[2021-09-06] MEDS ORDERED: Clinimix E 5%-15% SOLUTION 2,000 ML with MVI, adult with vitamin K 10 ML IVC SCH (17:00)
[2021-09-07] MEDS: Morphine Sulfate 2 MG/ML SYRINGE IVP PRN ×3 (01:56→23:19)
[2021-09-07] MEDS: Insulin LISPRO 300 UNITS/3 ML VIAL SUBQ SCH ×6 (03:35→23:15)
[2021-09-07] MEDS: Dexmedetomidine HCl 400 MCG/100 ML MLS IVC SCH ×2 (03:39→12:01)
[2021-09-07 04:05] LABS: BUN/Creatinine Ratio 74 (6-26); Blood Urea Nitrogen 45 mg/dL (8-23); Calcium 9.1 mg/dL (8.6-10.3); Carbon Dioxide 32 mEq/L (23-29); Chloride 102 mEq/L (98-107); Glucose 145 mg/dL (70-105); Magnesium 2.5 mg/dL (1.6-2.6); Osmolality,Calculated 306 (280-300); Phosphorous 3.4 mg/dL (2.7-4.5); Potassium 4.3 mEq/L (3.5-5.1); Sodium 141 mEq/L (136-145); eGFR For African Americans > 60 (> 60); eGFR For Non-African Americans > 60 (> 60)
[2021-09-07] MEDS: Furosemide 20 MG/2 ML VIAL IVP SCH (08:58)
[2021-09-07] MEDS: Dexamethasone Sodium Phos/PF 10 MG/ML VIAL IVP SCH (08:58)
[2021-09-07] MEDS: Sennosides/Docusate Sodium TABLET PO SCH (08:59)
[2021-09-07] MEDS: amLODIPine 5 MG TABLET PO SCH (08:59)
[2021-09-07] MEDS: Aspirin Enteric Coated 81 MG Tablet PO SCH (08:59)
[2021-09-07] MEDS ORDERED: Acetaminophen IV 1,000 MG/100 ML BAG IVPB PRN (12:25)
[2021-09-07] MEDS ORDERED: Clinimix E 5%-15% SOLUTION 2,000 ML with MVI, adult with vitamin K 10 ML IVC SCH (17:00)
[2021-09-07] MEDS: Heparin 25,000UNIT/250ML 1/2NS 25,000 UNIT/250 ML IV.SOLN IVC SCH (22:11)
[2021-09-08] MEDS: Dexmedetomidine HCl 400 MCG/100 ML MLS IVC SCH ×3 (00:54→18:05)
[2021-09-08 01:58] LABS: Basophils # 0.1 K/mcL (0.0-0.2); Basophils % 0.3 %; Eosinophils % 0.2 %; Hematocrit 43.2 % (35.3-44.9); Hemoglobin 13.6 g/dL (11.5-15.4); Immature Granulocytes % 1.4 % (0-4); Lymphocytes # 0.8 K/mcL (0.6-4.6); Lymphocytes % 4.7 %; Mean Corpuscular HGB Conc 31.5 g/dL (31.6-35.5); Mean Corpuscular Hemoglobin 28.9 pg (28.0-33.3); Mean Corpuscular Volume 91.9 fL (83.0-100.0); Mean Platelet Volume 10.9 fL (9.4-12.4); Monocytes # 1.1 K/mcL (0.0-1.3); Monocytes % 6.3 %; Nucleated Red Blood Cells 0.1 /100 WBC (0); Platelet Count 191 K/mcL (140-400); Red Cell Distribution Width 14.7 % (11.5-14.5); Segmented Neutrophils % 87.1 %; White Blood Count 17.2 K/mcL (4.3-11.1)
[2021-09-08] MEDS: Heparin 25,000UNIT/250ML 1/2NS 25,000 UNIT/250 ML IV.SOLN IVC SCH (02:15)
[2021-09-08] MEDS: Insulin LISPRO 300 UNITS/3 ML VIAL SUBQ SCH ×6 (03:27→23:16)
[2021-09-08] MEDS: Aspirin Enteric Coated 81 MG Tablet PO SCH (07:16)
[2021-09-08] MEDS: amLODIPine 5 MG TABLET PO SCH (07:17)
[2021-09-08] MEDS: Sennosides/Docusate Sodium TABLET PO SCH (07:17)
[2021-09-08] MEDS: Furosemide 20 MG/2 ML VIAL IVP SCH (07:37)
[2021-09-08] MEDS: Dexamethasone Sodium Phos/PF 10 MG/ML VIAL IVP SCH ×2 (07:37→10:57)
[2021-09-08] MEDS: Morphine Sulfate 2 MG/ML SYRINGE IVP PRN ×2 (11:00→23:21)
[2021-09-08 11:18] LABS: BUN/Creatinine Ratio 74 (6-26); Blood Urea Nitrogen 50 mg/dL (8-23); Calcium 9.1 mg/dL (8.6-10.3); Carbon Dioxide 31 mEq/L (23-29); Chloride 99 mEq/L (98-107); Glucose 171 mg/dL (70-105); Magnesium 2.6 mg/dL (1.6-2.6); Osmolality,Calculated 305 (280-300); Phosphorous 3.7 mg/dL (2.7-4.5); Potassium 4.5 mEq/L (3.5-5.1); Sodium 139 mEq/L (136-145); eGFR For African Americans > 60 (> 60); eGFR For Non-African Americans > 60 (> 60)
[2021-09-08] MEDS: *HR* Heparin 5,000 UNIT/ML VIAL IVP PRN (13:01)
[2021-09-08] MEDS: *HR* LORazepam 2 MG/ML VIAL IVP PRN (13:01)
[2021-09-08] MEDS ORDERED: Clinimix E 5%-15% SOLUTION 2,000 ML with MVI, adult with vitamin K 10 ML IVC SCH (17:00)
[2021-09-09 05:03] LABS: Basophils % 0.2 %; Eosinophils # 0.1 K/mcL (0.0-0.6); Eosinophils % 0.7 %; Hematocrit 41.6 % (35.3-44.9); Hemoglobin 13.1 g/dL (11.5-15.4); Immature Granulocytes % 1.5 % (0-4); Lymphocytes % 6.2 %; Mean Corpuscular HGB Conc 31.5 g/dL (31.6-35.5); Mean Platelet Volume 11.2 fL (9.4-12.4); Monocytes # 0.9 K/mcL (0.0-1.3); Monocytes % 5.7 %; Neutrophils # 13.9 K/mcL (1.6-8.9); Platelet Count 185 K/mcL (140-400); Red Blood Count 4.51 M/mcL (3.82-4.97); Red Cell Distribution Width 14.8 % (11.5-14.5); Segmented Neutrophils % 85.7 %; White Blood Count 16.2 K/mcL (4.3-11.1)
[2021-09-09 05:04] LABS: Mean Corpuscular Volume 92.2 fL (83.0-100.0)
[2021-09-09 05:25] LABS: BUN/Creatinine Ratio 90 (6-26); Blood Urea Nitrogen 52 mg/dL (8-23); Calcium 9.2 mg/dL (8.6-10.3); Carbon Dioxide 33 mEq/L (23-29); Chloride 99 mEq/L (98-107); Glucose 176 mg/dL (70-105); Magnesium 2.5 mg/dL (1.6-2.6); Osmolality,Calculated 302 (280-300); Phosphorous 3.3 mg/dL (2.7-4.5); Potassium 4.6 mEq/L (3.5-5.1); Sodium 137 mEq/L (136-145); eGFR For African Americans > 60 (> 60); eGFR For Non-African Americans > 60 (> 60)
[2021-09-09] MEDS: Heparin 25,000UNIT/250ML 1/2NS 25,000 UNIT/250 ML IV.SOLN IVC SCH (05:44)
[2021-09-09] MEDS: Insulin LISPRO 300 UNITS/3 ML VIAL SUBQ SCH ×5 (05:45→21:27)
[2021-09-09] MEDS: Aspirin Enteric Coated 81 MG Tablet PO SCH ×2 (08:52→10:08)
[2021-09-09] MEDS: Dexamethasone Sodium Phos/PF 10 MG/ML VIAL IVP SCH (08:57)
[2021-09-09] MEDS: Furosemide 20 MG/2 ML VIAL IVP SCH (08:59)
[2021-09-09] MEDS: amLODIPine 5 MG TABLET PO SCH ×2 (09:00→10:08)
[2021-09-09] MEDS: Sennosides/Docusate Sodium TABLET PO SCH ×2 (09:01→10:08)
[2021-09-09] MEDS: *HR* Metoprolol 5 MG/5 ML VIAL IVP SCH ×3 (09:59→16:57)
[2021-09-09] MEDS: Morphine Sulfate 2 MG/ML SYRINGE IVP PRN (11:19)
[2021-09-09] MEDS: Pantoprazole 40 MG VIAL IVP SCH (12:20)
[2021-09-09] MEDS: Dexmedetomidine HCl 400 MCG/100 ML MLS IVC SCH ×2 (12:21→21:24)
[2021-09-09] MEDS: *HR* Enoxaparin 100 MG/ML SYRINGE SQ SCH (16:57)
[2021-09-09] MEDS ORDERED: Clinimix E 5%-15% SOLUTION 2,000 ML with MVI, adult with vitamin K 10 ML IVC SCH (17:00)
[2021-09-09 17:33] LABS: Amorphous Sediment,Urine Few per hpf (None-Few); Bacteria,Urine Few per hpf (None-Few); Budding Yeast,Urine Few per hpf (None Seen); Mucus,Urine Few per lpf (None-Few); RBC,Urine 15-30 per hpf (0-3); Squamous Epithelial Cell,Urine Few per hpf (None-Few)
[2021-09-09 23:02] LABS: Bacteria,Urine Few per hpf (None-Few); Bilirubin,Urine Negative (Negative); Blood,Urine Moderate (Negative); Clarity,Urine Clear (Clear); Color,Urine Orange (Yellow); Glucose,Urine (UA) 70 mg/dL (Normal); Ketones,Urine Negative (Negative); Leukocyte Esterase,Urine Negative (Negative); Mucus,Urine Few per lpf (None-Few); Nitrite,Urine Negative (Negative); Protein,Urine 30 mg/dL (Neg-Trace); RBC,Urine 15-30 per hpf (0-3); Specific Gravity,Urine > 1.030 (1.010-1.025); WBC,Urine 0-3 per hpf (0-3)
[2021-09-10] MEDS: *HR* Metoprolol 5 MG/5 ML VIAL IVP SCH ×5 (00:14→22:53)
[2021-09-10] MEDS: Insulin LISPRO 300 UNITS/3 ML VIAL SUBQ SCH ×7 (00:15→23:52)
[2021-09-10 03:51] LABS: Basophils % 0.1 %; Eosinophils # 0.3 K/mcL (0.0-0.6); Eosinophils % 1.3 %; Hematocrit 41.2 % (35.3-44.9); Hemoglobin 13.3 g/dL (11.5-15.4); Immature Granulocytes % 1.3 % (0-4); Lymphocytes # 1.2 K/mcL (0.6-4.6); Lymphocytes % 6.1 %; Mean Corpuscular HGB Conc 32.3 g/dL (31.6-35.5); Mean Corpuscular Hemoglobin 29.4 pg (28.0-33.3); Mean Corpuscular Volume 91.2 fL (83.0-100.0); Monocytes # 0.9 K/mcL (0.0-1.3); Monocytes % 4.9 %; Neutrophils # 16.1 K/mcL (1.6-8.9); Platelet Count 166 K/mcL (140-400); Red Blood Count 4.52 M/mcL (3.82-4.97); Segmented Neutrophils % 86.3 %; White Blood Count 18.7 K/mcL (4.3-11.1)
[2021-09-10 04:09] LABS: Prealbumin 38.3 mg/dL (17.0-34.0)
[2021-09-10 04:10] LABS: BUN/Creatinine Ratio 83 (6-26); Blood Urea Nitrogen 53 mg/dL (8-23); Calcium 8.9 mg/dL (8.6-10.3); Carbon Dioxide 30 mEq/L (23-29); Chloride 97 mEq/L (98-107); Glucose 231 mg/dL (70-105); Magnesium 2.4 mg/dL (1.6-2.6); Osmolality,Calculated 302 (280-300); Phosphorous 3.2 mg/dL (2.7-4.5); Potassium 4.2 mEq/L (3.5-5.1); Sodium 135 mEq/L (136-145); Triglycerides 418 mg/dL (< 150); eGFR For African Americans > 60 (> 60); eGFR For Non-African Americans > 60 (> 60)
[2021-09-10 04:17] LABS: Procalcitonin 0.09 ng/mL (0.00-0.15)
[2021-09-10] MEDS: *HR* Enoxaparin 100 MG/ML SYRINGE SQ SCH ×2 (05:29→17:28)
[2021-09-10] MEDS: Morphine Sulfate 2 MG/ML SYRINGE IVP PRN (05:29)
[2021-09-10] MEDS: Dexmedetomidine HCl 400 MCG/100 ML MLS IVC SCH ×2 (07:37→15:31)
[2021-09-10] MEDS: Pantoprazole 40 MG VIAL IVP SCH (09:36)
[2021-09-10] MEDS: Dexamethasone Sodium Phos/PF 10 MG/ML VIAL IVP SCH (09:47)
[2021-09-10] MEDS: Furosemide 20 MG/2 ML VIAL IVP SCH (09:57)
[2021-09-10] MEDS: amLODIPine 5 MG TABLET PO SCH (10:00)
[2021-09-10] MEDS: Sennosides/Docusate Sodium TABLET PO SCH (10:04)
[2021-09-10] MEDS: Aspirin Enteric Coated 81 MG Tablet PO SCH (10:04)
[2021-09-10] MEDS ORDERED: Clinimix E 5%-15% SOLUTION 2,000 ML with MVI, adult with vitamin K 10 ML IVC SCH (17:00)
[2021-09-10] MEDS: Melatonin 3 MG TABLET PO PRN (22:22)
[2021-09-11] MEDS: Dexmedetomidine HCl 400 MCG/100 ML MLS IVC SCH ×2 (02:14→11:07)
[2021-09-11] MEDS: Morphine Sulfate 2 MG/ML SYRINGE IVP PRN ×4 (02:14→21:24)
[2021-09-11 03:46] LABS: Basophils % 0.2 %; Eosinophils # 0.3 K/mcL (0.0-0.6); Eosinophils % 1.6 %; Hematocrit 39.2 % (35.3-44.9); Hemoglobin 12.9 g/dL (11.5-15.4); Immature Granulocytes % 1.4 % (0-4); Lymphocytes % 5.8 %; Mean Corpuscular HGB Conc 32.9 g/dL (31.6-35.5); Mean Corpuscular Hemoglobin 29.7 pg (28.0-33.3); Mean Corpuscular Volume 90.3 fL (83.0-100.0); Mean Platelet Volume 11.2 fL (9.4-12.4); Monocytes % 5.5 %; Neutrophils # 14.9 K/mcL (1.6-8.9); Platelet Count 180 K/mcL (140-400); Red Blood Count 4.34 M/mcL (3.82-4.97); Red Cell Distribution Width 14.8 % (11.5-14.5); Segmented Neutrophils % 85.5 %; White Blood Count 17.4 K/mcL (4.3-11.1)
[2021-09-11] MEDS: Insulin LISPRO 300 UNITS/3 ML VIAL SUBQ SCH ×6 (04:02→23:51)
[2021-09-11 04:06] LABS: BUN/Creatinine Ratio 87 (6-26); Blood Urea Nitrogen 47 mg/dL (8-23); Calcium 8.8 mg/dL (8.6-10.3); Carbon Dioxide 28 mEq/L (23-29); Chloride 96 mEq/L (98-107); Glucose 227 mg/dL (70-105); Magnesium 2.3 mg/dL (1.6-2.6); Osmolality,Calculated 293 (280-300); Phosphorous 3.9 mg/dL (2.7-4.5); Potassium 4.3 mEq/L (3.5-5.1); Sodium 132 mEq/L (136-145); eGFR For African Americans > 60 (> 60); eGFR For Non-African Americans > 60 (> 60)
[2021-09-11] MEDS: *HR* Metoprolol 5 MG/5 ML VIAL IVP SCH ×4 (05:28→23:51)
[2021-09-11] MEDS: *HR* Enoxaparin 100 MG/ML SYRINGE SQ SCH ×2 (05:30→17:29)
[2021-09-11] MEDS: Pantoprazole 40 MG VIAL IVP SCH (09:00)
[2021-09-11] MEDS: Dexamethasone Sodium Phos/PF 10 MG/ML VIAL IVP SCH (09:00)
[2021-09-11] MEDS: Furosemide 20 MG/2 ML VIAL IVP SCH (09:02)
[2021-09-11] MEDS: Sennosides/Docusate Sodium TABLET PO SCH (09:14)
[2021-09-11] MEDS: Aspirin Enteric Coated 81 MG Tablet PO SCH (09:22)
[2021-09-11] MEDS: amLODIPine 5 MG TABLET PO SCH (09:23)
[2021-09-11] MEDS: FLUoxetine 20 MG CAPSULE PO SCH (15:41)
[2021-09-11] MEDS ORDERED: Clinimix E 5%-15% SOLUTION 2,000 ML with MVI, adult with vitamin K 10 ML, ZN/CU/MN/SE... IVC SCH (17:00)
[2021-09-12] MEDS: Insulin LISPRO 300 UNITS/3 ML VIAL SUBQ SCH ×6 (03:04→23:29)
[2021-09-12] MEDS: *HR* LORazepam 2 MG/ML VIAL IVP PRN (03:30)
[2021-09-12] MEDS: *HR* Enoxaparin 100 MG/ML SYRINGE SQ SCH ×2 (04:58→17:30)
[2021-09-12] MEDS: *HR* Metoprolol 5 MG/5 ML VIAL IVP SCH ×4 (04:58→23:03)
[2021-09-12 05:53] LABS: Basophils % 0.1 %; Eosinophils # 0.3 K/mcL (0.0-0.6); Eosinophils % 1.4 %; Hemoglobin 12.7 g/dL (11.5-15.4); Immature Granulocytes % 1.7 % (0-4); Lymphocytes # 1.1 K/mcL (0.6-4.6); Lymphocytes % 6.1 %; Mean Corpuscular HGB Conc 32.6 g/dL (31.6-35.5); Mean Corpuscular Hemoglobin 29.5 pg (28.0-33.3); Mean Corpuscular Volume 90.7 fL (83.0-100.0); Mean Platelet Volume 11.4 fL (9.4-12.4); Monocytes % 5.4 %; Neutrophils # 15.1 K/mcL (1.6-8.9); Nucleated Red Blood Cells 0.1 /100 WBC (0); Platelet Count 193 K/mcL (140-400); Red Cell Distribution Width 15.2 % (11.5-14.5); Segmented Neutrophils % 85.3 %; White Blood Count 17.8 K/mcL (4.3-11.1)
[2021-09-12] MEDS: Morphine Sulfate 2 MG/ML SYRINGE IVP PRN (06:02)
[2021-09-12] MEDS: Dexmedetomidine HCl 400 MCG/100 ML MLS IVC SCH ×2 (06:02→20:11)
[2021-09-12 06:16] LABS: BUN/Creatinine Ratio 86 (6-26); Blood Urea Nitrogen 48 mg/dL (8-23); Carbon Dioxide 28 mEq/L (23-29); Chloride 97 mEq/L (98-107); Glucose 215 mg/dL (70-105); Magnesium 2.3 mg/dL (1.6-2.6); Osmolality,Calculated 295 (280-300); Phosphorous 3.4 mg/dL (2.7-4.5); Potassium 4.2 mEq/L (3.5-5.1); Sodium 133 mEq/L (136-145); eGFR For African Americans > 60 (> 60); eGFR For Non-African Americans > 60 (> 60)
[2021-09-12] MEDS: Pantoprazole 40 MG VIAL IVP SCH (07:27)
[2021-09-12] MEDS: Furosemide 20 MG/2 ML VIAL IVP SCH ×2 (07:29→07:30)
[2021-09-12] MEDS: Aspirin Enteric Coated 81 MG Tablet PO SCH (07:37)
[2021-09-12] MEDS: Dexamethasone Sodium Phos/PF 10 MG/ML VIAL IVP SCH (07:38)
[2021-09-12] MEDS: Sennosides/Docusate Sodium TABLET PO SCH (08:38)
[2021-09-12] MEDS: amLODIPine 5 MG TABLET PO SCH (08:38)
[2021-09-12] MEDS: FLUoxetine 20 MG CAPSULE PO SCH (08:38)
[2021-09-12] MEDS: Acetylcysteine 10% 2 ML INHSOL IH SCH ×3 (10:23→22:40)
[2021-09-12] MEDS: Ipratropium/Albuterol Neb 3 ML IH SCH ×3 (10:58→22:39)
[2021-09-12] MEDS ORDERED: Acetylcysteine 10% 2 ML INHSOL IH SCH (16:00)
[2021-09-12] MEDS ORDERED: Clinimix E 5%-15% SOLUTION 2,000 ML with MVI, adult with vitamin K 10 ML, ZN/CU/MN/SE... IVC SCH (17:00)
[2021-09-13] MEDS: Ipratropium/Albuterol Neb 3 ML IH SCH ×4 (03:19→21:32)
[2021-09-13] MEDS: Acetylcysteine 10% 2 ML INHSOL IH SCH ×4 (03:20→21:32)
[2021-09-13] MEDS: Insulin LISPRO 300 UNITS/3 ML VIAL SUBQ SCH ×5 (03:44→17:37)
[2021-09-13 04:41] LABS: Basophils % 0.2 %; Eosinophils # 0.1 K/mcL (0.0-0.6); Eosinophils % 0.5 %; Hematocrit 36.1 % (35.3-44.9); Hemoglobin 11.5 g/dL (11.5-15.4); Immature Granulocytes % 1.6 % (0-4); Lymphocytes % 5.7 %; Mean Corpuscular HGB Conc 31.9 g/dL (31.6-35.5); Mean Corpuscular Hemoglobin 29.4 pg (28.0-33.3); Mean Corpuscular Volume 92.3 fL (83.0-100.0); Mean Platelet Volume 11.4 fL (9.4-12.4); Monocytes # 0.9 K/mcL (0.0-1.3); Monocytes % 5.4 %; Neutrophils # 14.9 K/mcL (1.6-8.9); Nucleated Red Blood Cells 0.1 /100 WBC (0); Platelet Count 165 K/mcL (140-400); Red Blood Count 3.91 M/mcL (3.82-4.97); Red Cell Distribution Width 15.1 % (11.5-14.5); Segmented Neutrophils % 86.6 %; White Blood Count 17.2 K/mcL (4.3-11.1)
[2021-09-13 04:49] LABS: BUN/Creatinine Ratio 82 (6-26); Blood Urea Nitrogen 54 mg/dL (8-23); Calcium 8.9 mg/dL (8.6-10.3); Carbon Dioxide 29 mEq/L (23-29); Chloride 96 mEq/L (98-107); Glucose 276 mg/dL (70-105); Magnesium 2.4 mg/dL (1.6-2.6); Osmolality,Calculated 299 (280-300); Phosphorous 4.2 mg/dL (2.7-4.5); Potassium 4.4 mEq/L (3.5-5.1); Sodium 132 mEq/L (136-145); eGFR For African Americans > 60 (> 60); eGFR For Non-African Americans > 60 (> 60)
[2021-09-13] MEDS: *HR* Enoxaparin 100 MG/ML SYRINGE SQ SCH ×2 (05:50→17:38)
[2021-09-13] MEDS: *HR* Metoprolol 5 MG/5 ML VIAL IVP SCH ×3 (05:54→17:38)
[2021-09-13] MEDS: Dexmedetomidine HCl 400 MCG/100 ML MLS IVC SCH ×2 (06:17→16:31)
[2021-09-13] MEDS: Aspirin Enteric Coated 81 MG Tablet PO SCH (07:15)
[2021-09-13] MEDS: Dexamethasone Sodium Phos/PF 10 MG/ML VIAL IVP SCH (08:48)
[2021-09-13] MEDS: amLODIPine 5 MG TABLET PO SCH (08:49)
[2021-09-13] MEDS: Pantoprazole 40 MG VIAL IVP SCH (08:49)
[2021-09-13] MEDS: FLUoxetine 20 MG CAPSULE PO SCH (08:49)
[2021-09-13] MEDS: Sennosides/Docusate Sodium TABLET PO SCH (08:49)
[2021-09-13] MEDS: Furosemide 20 MG/2 ML VIAL IVP SCH (08:50)
[2021-09-13] MEDS ORDERED: Clinimix E 5%-15% SOLUTION 2,000 ML with MVI, adult with vitamin K 10 ML, ZN/CU/MN/SE... IVC SCH (17:00)
[2021-09-14] MEDS: Insulin LISPRO 300 UNITS/3 ML VIAL SUBQ SCH ×10 (00:05→23:58)
[2021-09-14] MEDS: *HR* Metoprolol 5 MG/5 ML VIAL IVP SCH ×5 (00:44→23:57)
[2021-09-14] MEDS: Dexmedetomidine HCl 400 MCG/100 ML MLS IVC SCH (02:50)
[2021-09-14] MEDS: Acetylcysteine 10% 2 ML INHSOL IH SCH ×4 (03:41→21:47)
[2021-09-14] MEDS: Ipratropium/Albuterol Neb 3 ML IH SCH ×4 (03:42→21:47)
[2021-09-14] MEDS: *HR* Enoxaparin 100 MG/ML SYRINGE SQ SCH ×2 (05:25→17:54)
[2021-09-14 07:12] LABS: Basophils % 0.1 %; Eosinophils # 0.5 K/mcL (0.0-0.6); Eosinophils % 2.8 %; Hematocrit 34.8 % (35.3-44.9); Immature Granulocytes % 1.2 % (0-4); Lymphocytes # 1.1 K/mcL (0.6-4.6); Mean Corpuscular HGB Conc 31.6 g/dL (31.6-35.5); Mean Corpuscular Hemoglobin 29.3 pg (28.0-33.3); Mean Platelet Volume 11.3 fL (9.4-12.4); Monocytes # 0.8 K/mcL (0.0-1.3); Monocytes % 4.6 %; Neutrophils # 13.6 K/mcL (1.6-8.9); Platelet Count 181 K/mcL (140-400); Red Blood Count 3.76 M/mcL (3.82-4.97); Red Cell Distribution Width 15.4 % (11.5-14.5); Segmented Neutrophils % 84.3 %; White Blood Count 16.1 K/mcL (4.3-11.1)
[2021-09-14 07:14] LABS: Mean Corpuscular Volume 92.6 fL (83.0-100.0)
[2021-09-14] MEDS: amLODIPine 5 MG TABLET PO SCH (09:57)
[2021-09-14] MEDS: Sennosides/Docusate Sodium TABLET PO SCH (09:57)
[2021-09-14] MEDS: Aspirin Enteric Coated 81 MG Tablet PO SCH (09:57)
[2021-09-14] MEDS: FLUoxetine 20 MG CAPSULE PO SCH (09:57)
[2021-09-14] MEDS: Pantoprazole 40 MG VIAL IVP SCH (10:03)
[2021-09-14] MEDS: Dexamethasone Sodium Phos/PF 10 MG/ML VIAL IVP SCH (10:05)
[2021-09-14] MEDS: Furosemide 20 MG/2 ML VIAL IVP SCH (10:07)
[2021-09-14 11:24] LABS: BUN/Creatinine Ratio 92 (6-26); Blood Urea Nitrogen 49 mg/dL (8-23); Calcium 8.8 mg/dL (8.6-10.3); Carbon Dioxide 25 mEq/L (23-29); Chloride 95 mEq/L (98-107); Glucose 304 mg/dL (70-105); Magnesium 2.3 mg/dL (1.6-2.6); Osmolality,Calculated 292 (280-300); Phosphorous 3.3 mg/dL (2.7-4.5); Potassium 4.3 mEq/L (3.5-5.1); Sodium 129 mEq/L (136-145); eGFR For African Americans > 60 (> 60); eGFR For Non-African Americans > 60 (> 60)
[2021-09-14] MEDS ORDERED: Clinimix E 5%-15% SOLUTION 2,000 ML with MVI, adult with vitamin K 10 ML, ZN/CU/MN/SE... IVC SCH (17:00)
[2021-09-14] MEDS: *HR* LORazepam 2 MG/ML VIAL IVP PRN (20:43)
[2021-09-14] MEDS: Insulin DETEMIR 100 UNIT/ML X5UNITS SUBQ SCH (20:44)
[2021-09-14] MEDS: Morphine Sulfate 2 MG/ML SYRINGE IVP PRN ×2 (21:55→23:57)
[2021-09-15 03:53] LABS: Basophils % 0.2 %; Eosinophils # 0.2 K/mcL (0.0-0.6); Eosinophils % 0.9 %; Hematocrit 35.7 % (35.3-44.9); Hemoglobin 11.5 g/dL (11.5-15.4); Immature Granulocytes % 1.7 % (0-4); Lymphocytes # 1.2 K/mcL (0.6-4.6); Lymphocytes % 5.9 %; Mean Corpuscular HGB Conc 32.2 g/dL (31.6-35.5); Mean Corpuscular Hemoglobin 29.3 pg (28.0-33.3); Mean Corpuscular Volume 91.1 fL (83.0-100.0); Mean Platelet Volume 10.7 fL (9.4-12.4); Monocytes % 5.1 %; Neutrophils # 16.9 K/mcL (1.6-8.9); Nucleated Red Blood Cells 0.1 /100 WBC (0); Platelet Count 226 K/mcL (140-400); Red Blood Count 3.92 M/mcL (3.82-4.97); Red Cell Distribution Width 15.7 % (11.5-14.5); Segmented Neutrophils % 86.2 %; White Blood Count 19.6 K/mcL (4.3-11.1)
[2021-09-15] MEDS: Acetylcysteine 10% 2 ML INHSOL IH SCH ×4 (04:02→19:37)
[2021-09-15] MEDS: Ipratropium/Albuterol Neb 3 ML IH SCH ×4 (04:02→19:38)
[2021-09-15 04:03] LABS: BUN/Creatinine Ratio 98 (6-26); Blood Urea Nitrogen 50 mg/dL (8-23); Carbon Dioxide 30 mEq/L (23-29); Chloride 96 mEq/L (98-107); Glucose 161 mg/dL (70-105); Magnesium 2.3 mg/dL (1.6-2.6); Osmolality,Calculated 291 (280-300); Phosphorous 3.7 mg/dL (2.7-4.5); Sodium 132 mEq/L (136-145); eGFR For African Americans > 60 (> 60); eGFR For Non-African Americans > 60 (> 60)
[2021-09-15] MEDS: *HR* Metoprolol 5 MG/5 ML VIAL IVP SCH ×3 (05:06→17:00)
[2021-09-15] MEDS: Insulin LISPRO 300 UNITS/3 ML VIAL SUBQ SCH ×10 (05:07→21:29)
[2021-09-15] MEDS: *HR* Enoxaparin 100 MG/ML SYRINGE SQ SCH ×2 (05:07→17:00)
[2021-09-15] MEDS: Furosemide 20 MG/2 ML VIAL IVP SCH (08:20)
[2021-09-15] MEDS: Dexamethasone Sodium Phos/PF 10 MG/ML VIAL IVP SCH (08:20)
[2021-09-15] MEDS: Pantoprazole 40 MG VIAL IVP SCH (08:21)
[2021-09-15] MEDS: Sennosides/Docusate Sodium TABLET PO SCH (08:22)
[2021-09-15] MEDS: Aspirin Enteric Coated 81 MG Tablet PO SCH (08:39)
[2021-09-15] MEDS: FLUoxetine 20 MG CAPSULE PO SCH (08:39)
[2021-09-15] MEDS: amLODIPine 5 MG TABLET PO SCH (08:39)
[2021-09-15] MEDS ORDERED: Clinimix E 5%-15% SOLUTION 2,000 ML with MVI, adult with vitamin K 10 ML, ZN/CU/MN/SE... IVC SCH (17:00)
[2021-09-15] MEDS: Insulin DETEMIR 100 UNIT/ML X5UNITS SUBQ SCH (21:27)
[2021-09-15] MEDS: Morphine Sulfate 2 MG/ML SYRINGE IVP PRN (21:29)
[2021-09-16] MEDS: Insulin LISPRO 300 UNITS/3 ML VIAL SUBQ SCH ×12 (00:38→20:08)
[2021-09-16] MEDS: *HR* Metoprolol 5 MG/5 ML VIAL IVP SCH ×4 (01:00→18:22)
[2021-09-16] MEDS: Acetylcysteine 10% 2 ML INHSOL IH SCH ×4 (03:57→20:00)
[2021-09-16] MEDS: Morphine Sulfate 2 MG/ML SYRINGE IVP PRN (03:57)
[2021-09-16] MEDS: Ipratropium/Albuterol Neb 3 ML IH SCH ×4 (03:57→20:00)
[2021-09-16] MEDS: *HR* Enoxaparin 100 MG/ML SYRINGE SQ SCH ×2 (05:12→18:22)
[2021-09-16 05:56] LABS: Basophils % 0.2 %; Eosinophils # 0.3 K/mcL (0.0-0.6); Eosinophils % 1.3 %; Hemoglobin 10.3 g/dL (11.5-15.4); Immature Granulocytes % 1.7 % (0-4); Lymphocytes # 1.5 K/mcL (0.6-4.6); Lymphocytes % 7.8 %; Mean Corpuscular HGB Conc 32.2 g/dL (31.6-35.5); Mean Corpuscular Hemoglobin 29.7 pg (28.0-33.3); Mean Platelet Volume 10.5 fL (9.4-12.4); Monocytes % 5.1 %; Neutrophils # 16.5 K/mcL (1.6-8.9); Nucleated Red Blood Cells 0.2 /100 WBC (0); Platelet Count 231 K/mcL (140-400); Red Blood Count 3.47 M/mcL (3.82-4.97); Red Cell Distribution Width 16.2 % (11.5-14.5); Segmented Neutrophils % 83.9 %; White Blood Count 19.7 K/mcL (4.3-11.1)
[2021-09-16 05:57] LABS: Mean Corpuscular Volume 92.2 fL (83.0-100.0)
[2021-09-16 06:16] LABS: BUN/Creatinine Ratio 96 (6-26); Blood Urea Nitrogen 49 mg/dL (8-23); Carbon Dioxide 30 mEq/L (23-29); Chloride 98 mEq/L (98-107); Glucose 145 mg/dL (70-105); Magnesium 2.4 mg/dL (1.6-2.6); Osmolality,Calculated 292 (280-300); Phosphorous 3.9 mg/dL (2.7-4.5); Sodium 133 mEq/L (136-145); eGFR For African Americans > 60 (> 60); eGFR For Non-African Americans > 60 (> 60)
[2021-09-16] MEDS: Pantoprazole 40 MG VIAL IVP SCH (08:29)
[2021-09-16] MEDS: Dexamethasone Sodium Phos/PF 10 MG/ML VIAL IVP SCH (08:29)
[2021-09-16] MEDS: Furosemide 20 MG/2 ML VIAL IVP SCH (08:30)
[2021-09-16] MEDS: Aspirin Enteric Coated 81 MG Tablet PO SCH (08:34)
[2021-09-16] MEDS: amLODIPine 5 MG TABLET PO SCH (08:34)
[2021-09-16] MEDS: FLUoxetine 20 MG CAPSULE PO SCH (08:35)
[2021-09-16] MEDS: Sennosides/Docusate Sodium TABLET PO SCH (08:35)
[2021-09-16] MEDS ORDERED: Clinimix E 5%-15% SOLUTION 2,000 ML with MVI, adult with vitamin K 10 ML, ZN/CU/MN/SE... IVC SCH (17:00)
[2021-09-16] MEDS: Dexmedetomidine HCl 400 MCG/100 ML MLS IVC SCH (20:03)
[2021-09-16] MEDS: Insulin DETEMIR 100 UNIT/ML X5UNITS SUBQ SCH (20:08)
[2021-09-16] MEDS: Acetaminophen 325 MG TABLET PO PRN (21:25)
[2021-09-17] MEDS: Melatonin 3 MG TABLET PO PRN (01:06)
[2021-09-17] MEDS: Morphine Sulfate 2 MG/ML SYRINGE IVP PRN ×5 (01:06→22:03)
[2021-09-17] MEDS: Insulin LISPRO 300 UNITS/3 ML VIAL SUBQ SCH ×12 (01:13→21:58)
[2021-09-17] MEDS: *HR* Metoprolol 5 MG/5 ML VIAL IVP SCH ×5 (01:13→18:28)
[2021-09-17] MEDS: Acetaminophen 325 MG TABLET PO PRN (04:00)
[2021-09-17] MEDS: Acetylcysteine 10% 2 ML INHSOL IH SCH ×4 (04:07→20:43)
[2021-09-17] MEDS: Ipratropium/Albuterol Neb 3 ML IH SCH ×4 (04:07→20:42)
[2021-09-17 05:19] LABS: Basophils # 0.1 K/mcL (0.0-0.2); Basophils % 0.2 %; Eosinophils % 0.2 %; Hematocrit 27.9 % (35.3-44.9); Lymphocytes # 1.8 K/mcL (0.6-4.6); Lymphocytes % 8.2 %; Mean Corpuscular HGB Conc 32.3 g/dL (31.6-35.5); Mean Corpuscular Hemoglobin 29.7 pg (28.0-33.3); Mean Corpuscular Volume 92.1 fL (83.0-100.0); Mean Platelet Volume 10.8 fL (9.4-12.4); Monocytes # 1.2 K/mcL (0.0-1.3); Monocytes % 5.4 %; Neutrophils # 18.3 K/mcL (1.6-8.9); Nucleated Red Blood Cells 0.6 /100 WBC (0); Platelet Count 239 K/mcL (140-400); Red Blood Count 3.03 M/mcL (3.82-4.97)
[2021-09-17] MEDS: *HR* Enoxaparin 100 MG/ML SYRINGE SQ SCH ×2 (06:14→18:10)
[2021-09-17 06:47] LABS: BUN/Creatinine Ratio 92 (6-26); Blood Urea Nitrogen 56 mg/dL (8-23); Carbon Dioxide 28 mEq/L (23-29); Chloride 97 mEq/L (98-107); Glucose 154 mg/dL (70-105); Magnesium 2.3 mg/dL (1.6-2.6); Osmolality,Calculated 295 (280-300); Phosphorous 4.2 mg/dL (2.7-4.5); Potassium 4.4 mEq/L (3.5-5.1); Sodium 133 mEq/L (136-145); Triglycerides 209 mg/dL (< 150); eGFR For African Americans > 60 (> 60); eGFR For Non-African Americans > 60 (> 60)
[2021-09-17] MEDS: Furosemide 20 MG/2 ML VIAL IVP SCH (08:29)
[2021-09-17] MEDS: Pantoprazole 40 MG VIAL IVP SCH (08:41)
[2021-09-17] MEDS: Dexamethasone Sodium Phos/PF 10 MG/ML VIAL IVP SCH (08:41)
[2021-09-17] MEDS: amLODIPine 5 MG TABLET PO SCH (08:41)
[2021-09-17] MEDS: Aspirin Enteric Coated 81 MG Tablet PO SCH (08:41)
[2021-09-17] MEDS: FLUoxetine 20 MG CAPSULE PO SCH (08:41)
[2021-09-17] MEDS: Sennosides/Docusate Sodium TABLET PO SCH (08:41)
[2021-09-17] MEDS ORDERED: Methyl Salicylate/Menthol 57 APPL/57 GM TUBE TP PRN (09:01)
[2021-09-17] MEDS ORDERED: Clinimix E 5%-15% SOLUTION 2,000 ML with MVI, adult with vitamin K 10 ML, ZN/CU/MN/SE... IVC SCH (17:00)
[2021-09-17] MEDS: Insulin DETEMIR 100 UNIT/ML X5UNITS SUBQ SCH (21:56)
[2021-09-17] MEDS: Dexmedetomidine HCl 400 MCG/100 ML MLS IVC SCH (22:49)
[2021-09-18] MEDS: *HR* Metoprolol 5 MG/5 ML VIAL IVP SCH ×5 (00:55→23:24)
[2021-09-18] MEDS: Insulin LISPRO 300 UNITS/3 ML VIAL SUBQ SCH ×14 (00:56→23:59)
[2021-09-18] MEDS: Acetylcysteine 10% 2 ML INHSOL IH SCH ×4 (04:18→20:42)
[2021-09-18] MEDS: Ipratropium/Albuterol Neb 3 ML IH SCH ×4 (04:18→20:42)
[2021-09-18] MEDS: *HR* Enoxaparin 100 MG/ML SYRINGE SQ SCH ×2 (05:55→18:00)
[2021-09-18] MEDS: Dexmedetomidine HCl 400 MCG/100 ML MLS IVC SCH ×2 (06:02→15:27)
[2021-09-18 06:37] LABS: Basophils % 0.2 %; Eosinophils # 0.1 K/mcL (0.0-0.6); Eosinophils % 0.3 %; Hematocrit 25.5 % (35.3-44.9); Immature Granulocytes % 3.8 % (0-4); Lymphocytes # 1.8 K/mcL (0.6-4.6); Lymphocytes % 10.1 %; Mean Corpuscular HGB Conc 31.4 g/dL (31.6-35.5); Mean Corpuscular Hemoglobin 29.3 pg (28.0-33.3); Mean Corpuscular Volume 93.4 fL (83.0-100.0); Mean Platelet Volume 10.7 fL (9.4-12.4); Monocytes # 0.8 K/mcL (0.0-1.3); Monocytes % 4.7 %; Neutrophils # 14.4 K/mcL (1.6-8.9); Nucleated Red Blood Cells 3.3 /100 WBC (0); Platelet Count 214 K/mcL (140-400); Red Blood Count 2.73 M/mcL (3.82-4.97); Red Cell Distribution Width 16.7 % (11.5-14.5); Segmented Neutrophils % 80.9 %; White Blood Count 17.8 K/mcL (4.3-11.1)
[2021-09-18 07:01] LABS: BUN/Creatinine Ratio 95 (6-26); Blood Urea Nitrogen 61 mg/dL (8-23); Calcium 8.8 mg/dL (8.6-10.3); Carbon Dioxide 29 mEq/L (23-29); Chloride 96 mEq/L (98-107); Glucose 151 mg/dL (70-105); Magnesium 2.5 mg/dL (1.6-2.6); Osmolality,Calculated 294 (280-300); Phosphorous 5.5 mg/dL (2.7-4.5); Potassium 4.5 mEq/L (3.5-5.1); Sodium 132 mEq/L (136-145); eGFR For African Americans > 60 (> 60); eGFR For Non-African Americans > 60 (> 60)
[2021-09-18] MEDS: Aspirin Enteric Coated 81 MG Tablet PO SCH (08:04)
[2021-09-18] MEDS: amLODIPine 5 MG TABLET PO SCH (08:06)
[2021-09-18] MEDS: FLUoxetine 20 MG CAPSULE PO SCH (08:07)
[2021-09-18] MEDS: Sennosides/Docusate Sodium TABLET PO SCH (08:07)
[2021-09-18] MEDS: Furosemide 20 MG/2 ML VIAL IVP SCH (09:31)
[2021-09-18] MEDS: Dexamethasone Sodium Phos/PF 10 MG/ML VIAL IVP SCH (09:32)
[2021-09-18] MEDS: Pantoprazole 40 MG VIAL IVP SCH (09:32)
[2021-09-18] MEDS ORDERED: Clinimix 5%-20% SOLUTION 2,000 ML with MVI, adult with vitamin K 10 ML, ZN/CU/MN/SE 1... IVC SCH (17:00)
[2021-09-18] MEDS: Insulin DETEMIR 100 UNIT/ML X5UNITS SUBQ SCH (20:27)
[2021-09-19] MEDS: Dexmedetomidine HCl 400 MCG/100 ML MLS IVC SCH (03:46)
[2021-09-19] MEDS: Ipratropium/Albuterol Neb 3 ML IH SCH ×4 (03:52→21:12)
[2021-09-19] MEDS: Acetylcysteine 10% 2 ML INHSOL IH SCH ×4 (03:52→21:12)
[2021-09-19] MEDS: Insulin LISPRO 300 UNITS/3 ML VIAL SUBQ SCH ×12 (03:58→23:59)
[2021-09-19] MEDS: Morphine Sulfate 2 MG/ML SYRINGE IVP PRN ×2 (04:05→23:36)
[2021-09-19 04:59] LABS: Basophils % 0.2 %; Eosinophils # 0.1 K/mcL (0.0-0.6); Eosinophils % 0.4 %; Hemoglobin 7.8 g/dL (11.5-15.4); Immature Granulocytes % 2.8 % (0-4); Lymphocytes # 1.8 K/mcL (0.6-4.6); Lymphocytes % 8.7 %; Mean Corpuscular HGB Conc 32.5 g/dL (31.6-35.5); Mean Corpuscular Hemoglobin 30.6 pg (28.0-33.3); Mean Corpuscular Volume 94.1 fL (83.0-100.0); Mean Platelet Volume 10.5 fL (9.4-12.4); Monocytes # 0.8 K/mcL (0.0-1.3); Neutrophils # 17.1 K/mcL (1.6-8.9); Nucleated Red Blood Cells 3.9 /100 WBC (0); Platelet Count 213 K/mcL (140-400); Red Blood Count 2.55 M/mcL (3.82-4.97); Red Cell Distribution Width 17.1 % (11.5-14.5); Segmented Neutrophils % 83.9 %; White Blood Count 20.3 K/mcL (4.3-11.1)
[2021-09-19 05:16] LABS: BUN/Creatinine Ratio 104 (6-26); Blood Urea Nitrogen 57 mg/dL (8-23); Calcium 8.8 mg/dL (8.6-10.3); Carbon Dioxide 30 mEq/L (23-29); Chloride 97 mEq/L (98-107); Glucose 140 mg/dL (70-105); Magnesium 2.4 mg/dL (1.6-2.6); Osmolality,Calculated 294 (280-300); Sodium 133 mEq/L (136-145); eGFR For African Americans > 60 (> 60); eGFR For Non-African Americans > 60 (> 60)
[2021-09-19] MEDS: *HR* Metoprolol 5 MG/5 ML VIAL IVP SCH (05:35)
[2021-09-19] MEDS: *HR* Enoxaparin 100 MG/ML SYRINGE SQ SCH ×2 (05:36→18:44)
[2021-09-19] MEDS: Dexamethasone Sodium Phos/PF 10 MG/ML VIAL IVP SCH (09:12)
[2021-09-19] MEDS: Furosemide 20 MG/2 ML VIAL IVP SCH ×2 (09:13→20:44)
[2021-09-19] MEDS: Aspirin Enteric Coated 81 MG Tablet PO SCH (09:15)
[2021-09-19] MEDS: Sennosides/Docusate Sodium TABLET PO SCH (09:15)
[2021-09-19] MEDS: FLUoxetine 20 MG CAPSULE PO SCH (09:15)
[2021-09-19] MEDS: amLODIPine 5 MG TABLET PO SCH (09:16)
[2021-09-19] MEDS: Metoprolol XL (24 HR) Succ 25 MG TAB.ER.24H PO SCH (15:20)
[2021-09-19] MEDS ORDERED: Clinimix E 5%-15% SOLUTION 2,000 ML with MVI, adult with vitamin K 10 ML, ZN/CU/MN/SE... IVC SCH (17:00)
[2021-09-19] MEDS ORDERED: QUEtiapine Fumarate 25 MG TABLET PO SCH (21:00)
[2021-09-19] MEDS: Ondansetron 4 MG/2 ML VIAL IVP PRN (21:31)
[2021-09-19] MEDS: Insulin DETEMIR 100 UNIT/ML X5UNITS SUBQ SCH (21:47)
[2021-09-20] MEDS: Acetylcysteine 10% 2 ML INHSOL IH SCH ×4 (04:03→21:00)
[2021-09-20] MEDS: Ipratropium/Albuterol Neb 3 ML IH SCH ×4 (04:03→21:00)
[2021-09-20 04:09] LABS: Basophils % 0.1 %; Eosinophils % 0.1 %; Hematocrit 21.4 % (35.3-44.9); Hemoglobin 6.5 g/dL (11.5-15.4); Immature Granulocytes % 2.7 % (0-4); Lymphocytes # 0.8 K/mcL (0.6-4.6); Lymphocytes % 5.4 %; Mean Corpuscular HGB Conc 30.4 g/dL (31.6-35.5); Mean Corpuscular Hemoglobin 30.4 pg (28.0-33.3); Mean Platelet Volume 10.4 fL (9.4-12.4); Monocytes # 0.7 K/mcL (0.0-1.3); Monocytes % 4.6 %; Neutrophils # 13.4 K/mcL (1.6-8.9); Nucleated Red Blood Cells 3.7 /100 WBC (0); Platelet Count 213 K/mcL (140-400); Red Blood Count 2.14 M/mcL (3.82-4.97); Red Cell Distribution Width 19.1 % (11.5-14.5); Segmented Neutrophils % 87.1 %; White Blood Count 15.4 K/mcL (4.3-11.1)
[2021-09-20 04:48] LABS: BUN/Creatinine Ratio 71 (6-26); Blood Urea Nitrogen 56 mg/dL (8-23); Calcium 8.9 mg/dL (8.6-10.3); Carbon Dioxide 27 mEq/L (23-29); Chloride 93 mEq/L (98-107); Glucose 962 mg/dL (70-105); Magnesium 2.6 mg/dL (1.6-2.6); Osmolality,Calculated 327 (280-300); Phosphorous 6.4 mg/dL (2.7-4.5); Potassium 5.8 mEq/L (3.5-5.1); Sodium 127 mEq/L (136-145); eGFR For African Americans > 60 (> 60); eGFR For Non-African Americans > 60 (> 60)
[2021-09-20] MEDS: Insulin LISPRO 300 UNITS/3 ML VIAL SUBQ SCH ×10 (05:23→21:08)
[2021-09-20] MEDS: *HR* Enoxaparin 100 MG/ML SYRINGE SQ SCH ×2 (05:24→17:05)
[2021-09-20] MEDS: Pantoprazole 40 MG VIAL IVP SCH (05:24)
[2021-09-20] MEDS: Aspirin Enteric Coated 81 MG Tablet PO SCH ×2 (09:25→10:07)
[2021-09-20] MEDS: Sennosides/Docusate Sodium TABLET PO SCH ×2 (09:25→10:08)
[2021-09-20] MEDS: Furosemide 20 MG/2 ML VIAL IVP SCH ×2 (09:25→21:07)
[2021-09-20] MEDS: Metoprolol XL (24 HR) Succ 25 MG TAB.ER.24H PO SCH ×2 (09:25→10:08)
[2021-09-20] MEDS: FLUoxetine 20 MG CAPSULE PO SCH ×2 (09:25→10:08)
[2021-09-20] MEDS: Dexamethasone Sodium Phos/PF 10 MG/ML VIAL IVP SCH (09:26)
[2021-09-20] MEDS ORDERED: Perflutren Lipid Microsphere 1.3 ML in 0.9 % Sodium Chloride 8.7 ML IVP PRN (10:47)
[2021-09-20] MEDS: SODIUM ZIRCONIUM CYCLOSILICATE 5 GM POWD.PACK PO SCH (12:30)
[2021-09-20 14:53] LABS: Alanine Aminotransferase 40 Units/L (7-52); Albumin 3.1 g/dL (3.5-5.7); Albumin/Globulin Ratio 1.1 (1.1-2.2); Alkaline Phosphatase 133 Units/L (34-104); Aspartate Amino Transferase 30 Units/L (13-39); BUN/Creatinine Ratio 79 (6-26); Bilirubin,Direct 1.2 mg/dL (0.0-0.2); Bilirubin,Indirect 2.3 mg/dL (0.0-1.0); Bilirubin,Total 3.5 mg/dL (0.3-1.0); Blood Urea Nitrogen 64 mg/dL (8-23); Calcium 9.1 mg/dL (8.6-10.3); Carbon Dioxide 27 mEq/L (23-29); Chloride 99 mEq/L (98-107); Globulin 2.8 g/dL (2.4-3.5); Glucose 190 mg/dL (70-105); Magnesium 2.4 mg/dL (1.6-2.6); Osmolality,Calculated 303 (280-300); Phosphorous 4.7 mg/dL (2.7-4.5); Potassium 4.3 mEq/L (3.5-5.1); Sodium 135 mEq/L (136-145); Thyroid Stimulating Hormone 0.975 mcIU/mL (0.340-5.600); Total Protein 5.9 g/dL (6.4-8.9); eGFR For African Americans > 60 (> 60); eGFR For Non-African Americans > 60 (> 60)
[2021-09-20] MEDS ORDERED: 0.9 % Sodium Chloride 250 ML ONE (14:56)
[2021-09-20] MEDS: amLODIPine 5 MG TABLET PO SCH (16:53)
[2021-09-20] MEDS ORDERED: Clinimix 5%-20% SOLUTION 2,000 ML with MVI, adult with vitamin K 10 ML, ZN/CU/MN/SE 1... IVC SCH (17:00)
[2021-09-20] MEDS ORDERED: *HR* Metoprolol 5 MG/5 ML VIAL IVP PRN (19:42)
[2021-09-20 20:29] LABS: Hematocrit 25.1 % (35.3-44.9); Hemoglobin 7.9 g/dL (11.5-15.4)
[2021-09-20] MEDS ORDERED: QUEtiapine Fumarate 100 MG TABLET PO SCH (21:00)
[2021-09-20] MEDS: Insulin DETEMIR 100 UNIT/ML X5UNITS SUBQ SCH (21:08)
[2021-09-21] MEDS: Insulin LISPRO 300 UNITS/3 ML VIAL SUBQ SCH ×12 (02:20→20:22)
[2021-09-21] MEDS: Morphine Sulfate 2 MG/ML SYRINGE IVP PRN (02:29)
[2021-09-21 03:32] LABS: Hematocrit 23.9 % (35.3-44.9); Hemoglobin 7.7 g/dL (11.5-15.4); Mean Corpuscular HGB Conc 32.2 g/dL (31.6-35.5); Mean Corpuscular Hemoglobin 30.1 pg (28.0-33.3); Mean Platelet Volume 10.6 fL (9.4-12.4); Nucleated Red Blood Cells 3.1 /100 WBC (0); Platelet Count 232 K/mcL (140-400); Red Blood Count 2.56 M/mcL (3.82-4.97); Red Cell Distribution Width 18.3 % (11.5-14.5); White Blood Count 13.8 K/mcL (4.3-11.1)
[2021-09-21 03:38] LABS: BUN/Creatinine Ratio 86 (6-26); Blood Urea Nitrogen 62 mg/dL (8-23); Calcium 8.8 mg/dL (8.6-10.3); Carbon Dioxide 29 mEq/L (23-29); Chloride 100 mEq/L (98-107); Glucose 206 mg/dL (70-105); Magnesium 2.4 mg/dL (1.6-2.6); Osmolality,Calculated 306 (280-300); Phosphorous 3.4 mg/dL (2.7-4.5); Potassium 4.4 mEq/L (3.5-5.1); Sodium 136 mEq/L (136-145); eGFR For African Americans > 60 (> 60); eGFR For Non-African Americans > 60 (> 60)
[2021-09-21 04:01] LABS: Mean Corpuscular Volume 93.4 fL (83.0-100.0)
[2021-09-21] MEDS: Acetylcysteine 10% 2 ML INHSOL IH SCH ×4 (04:19→21:45)
[2021-09-21] MEDS: Ipratropium/Albuterol Neb 3 ML IH SCH ×4 (04:19→21:45)
[2021-09-21] MEDS: Pantoprazole 40 MG VIAL IVP SCH (05:50)
[2021-09-21] MEDS: *HR* Enoxaparin 100 MG/ML SYRINGE SQ SCH ×2 (05:50→17:13)
[2021-09-21 07:13] LABS: Lymphocytes # 1.1 K/mcL (0.6-4.6); Monocytes # 0.3 K/mcL (0.0-1.3); Neutrophils # 12.4 K/mcL (1.6-8.9); Platelet Estimate Normal (Normal)
[2021-09-21] MEDS: cefTRIAXone 2,000 MG in Water for inj. (sterile) 20 ML IVP SCH (08:08)
[2021-09-21] MEDS: Azithromycin 500 MG in 0.9 % Sodium Chloride 250 ML IVPB SCH (08:10)
[2021-09-21] MEDS: Dexamethasone Sodium Phos/PF 10 MG/ML VIAL IVP SCH (08:11)
[2021-09-21] MEDS: Furosemide 20 MG/2 ML VIAL IVP SCH ×2 (08:11→20:08)
[2021-09-21] MEDS: Aspirin Enteric Coated 81 MG Tablet PO SCH (08:38)
[2021-09-21] MEDS: SODIUM ZIRCONIUM CYCLOSILICATE 5 GM POWD.PACK PO SCH (08:38)
[2021-09-21] MEDS: Sennosides/Docusate Sodium TABLET PO SCH (08:38)
[2021-09-21] MEDS: Metoprolol XL (24 HR) Succ 25 MG TAB.ER.24H PO SCH (08:38)
[2021-09-21] MEDS: FLUoxetine 20 MG CAPSULE PO SCH (08:38)
[2021-09-21] MEDS ORDERED: Clinimix 5%-20% SOLUTION 2,000 ML with MVI, adult with vitamin K 10 ML, ZN/CU/MN/SE 1... IVC SCH (17:00)
[2021-09-21] MEDS: Insulin DETEMIR 100 UNIT/ML X5UNITS SUBQ SCH (20:33)
[2021-09-22 02:36] LABS: Acinetobacter baumannii by PCR Not Detected (Not Detect); Candida albicans by PCR Not Detected (Not Detect); Candida glabrata by PCR Not Detected (Not Detect); Candida krusei by PCR Not Detected (Not Detect); Candida parapsilosis by PCR Not Detected (Not Detect); Candida tropicalis by PCR Not Detected (Not Detect); Enterobacter cloacae Cmplx PCR Not Detected (Not Detect); Enterobacteriaceae by PCR Not Detected (Not Detect); Enterococcus by PCR Not Detected (Not Detect); Escherichia coli by PCR Not Detected (Not Detect); Klebsiella oxytoca by PCR Not Detected (Not Detect); Klebsiella pneumoniae by PCR Not Detected (Not Detect); Proteus by PCR Not Detected (Not Detect); Pseudomonas aeruginosa by PCR Not Detected (Not Detect); Serratia marcescens by PCR Not Detected (Not Detect); Staphylococcus aureus by PCR DETECTED (Not Detect); Streptococcus agalactiae(B)PCR Not Detected (Not Detect); Streptococcus by PCR Not Detected (Not Detect); Streptococcus pneumoniae PCR Not Detected (Not Detect); Streptococcus pyogenes (A) PCR Not Detected (Not Detect); mecA Methicillin-Resist Gene Not Detected (Not Detect)
[2021-09-22] MEDS: Insulin LISPRO 300 UNITS/3 ML VIAL SUBQ SCH ×10 (03:22→20:59)
[2021-09-22] MEDS: Ipratropium/Albuterol Neb 3 ML IH SCH ×4 (04:01→20:39)
[2021-09-22] MEDS: Acetylcysteine 10% 2 ML INHSOL IH SCH ×2 (04:02→08:50)
[2021-09-22] MEDS: Pantoprazole 40 MG VIAL IVP SCH (06:22)
[2021-09-22] MEDS: *HR* Enoxaparin 100 MG/ML SYRINGE SQ SCH ×2 (06:23→16:16)
[2021-09-22 06:54] LABS: Hematocrit 22.9 % (35.3-44.9); Hemoglobin 7.2 g/dL (11.5-15.4); Mean Corpuscular HGB Conc 31.4 g/dL (31.6-35.5); Mean Corpuscular Hemoglobin 29.6 pg (28.0-33.3); Platelet Count 230 K/mcL (140-400); Red Blood Count 2.43 M/mcL (3.82-4.97); Red Cell Distribution Width 17.2 % (11.5-14.5); White Blood Count 10.8 K/mcL (4.3-11.1)
[2021-09-22 07:00] LABS: Mean Corpuscular Volume 94.2 fL (83.0-100.0)
[2021-09-22 07:16] LABS: BUN/Creatinine Ratio 100 (6-26); Blood Urea Nitrogen 51 mg/dL (8-23); Calcium 8.5 mg/dL (8.6-10.3); Carbon Dioxide 29 mEq/L (23-29); Chloride 101 mEq/L (98-107); Glucose 222 mg/dL (70-105); Magnesium 2.2 mg/dL (1.6-2.6); Osmolality,Calculated 305 (280-300); Potassium 3.9 mEq/L (3.5-5.1); Sodium 137 mEq/L (136-145); eGFR For African Americans > 60 (> 60); eGFR For Non-African Americans > 60 (> 60)
[2021-09-22] MEDS: SODIUM ZIRCONIUM CYCLOSILICATE 5 GM POWD.PACK PO SCH (10:14)
[2021-09-22] MEDS: FLUoxetine 20 MG CAPSULE PO SCH (10:14)
[2021-09-22] MEDS: Metoprolol XL (24 HR) Succ 25 MG TAB.ER.24H PO SCH (10:14)
[2021-09-22] MEDS: Sennosides/Docusate Sodium TABLET PO SCH (10:14)
[2021-09-22] MEDS: Aspirin Enteric Coated 81 MG Tablet PO SCH (10:14)
[2021-09-22] MEDS: Azithromycin 500 MG in 0.9 % Sodium Chloride 250 ML IVPB SCH (10:15)
[2021-09-22] MEDS: Dexamethasone Sodium Phos/PF 10 MG/ML VIAL IVP SCH (10:15)
[2021-09-22] MEDS: Furosemide 20 MG/2 ML VIAL IVP SCH (10:15)
[2021-09-22] MEDS: cefTRIAXone 2,000 MG in Water for inj. (sterile) 20 ML IVP SCH (10:16)
[2021-09-22] MEDS ORDERED: Perflutren Lipid Microsphere 1.3 ML in 0.9 % Sodium Chloride 8.7 ML IVP PRN (13:35)
[2021-09-22] MEDS ORDERED: Nafcillin 2,000 MG in 0.9 % Sodium Chloride Mini Bag 100 ML IVPB SCH (14:00)
[2021-09-22] MEDS: Furosemide 40 MG TABLET PO SCH (16:16)
[2021-09-22] MEDS: Insulin DETEMIR 100 UNIT/ML X5UNITS SUBQ SCH ×2 (16:16→21:00)
[2021-09-22] MEDS ORDERED: Clinimix 5%-20% SOLUTION 2,000 ML with MVI, adult with vitamin K 10 ML, ZN/CU/MN/SE 1... IVC SCH (17:00)
[2021-09-22] MEDS: Nafcillin 2,000 MG in 0.9 % Sodium Chloride Mini Bag 100 ML IVPB SCH ×2 (17:15→21:02)
[2021-09-23] MEDS: Morphine Sulfate 2 MG/ML SYRINGE IVP PRN (00:44)
[2021-09-23] MEDS: Insulin LISPRO 300 UNITS/3 ML VIAL SUBQ SCH ×6 (02:52→21:29)
[2021-09-23] MEDS: Nafcillin 2,000 MG in 0.9 % Sodium Chloride Mini Bag 100 ML IVPB SCH ×6 (02:53→21:27)
[2021-09-23] MEDS: Ipratropium/Albuterol Neb 3 ML IH SCH ×4 (04:28→22:44)
[2021-09-23] MEDS: *HR* Enoxaparin 100 MG/ML SYRINGE SQ SCH ×2 (05:08→16:31)
[2021-09-23] MEDS: Insulin DETEMIR 100 UNIT/ML X5UNITS SUBQ SCH ×2 (08:15→21:40)
[2021-09-23] MEDS: Furosemide 40 MG TABLET PO SCH ×2 (08:23→16:31)
[2021-09-23] MEDS: Metoprolol XL (24 HR) Succ 25 MG TAB.ER.24H PO SCH (08:23)
[2021-09-23] MEDS: FLUoxetine 20 MG CAPSULE PO SCH (08:23)
[2021-09-23] MEDS: Aspirin Enteric Coated 81 MG Tablet PO SCH (08:23)
[2021-09-23] MEDS: Sennosides/Docusate Sodium TABLET PO SCH (08:23)
[2021-09-23] MEDS: Dexamethasone Sodium Phos/PF 10 MG/ML VIAL IVP SCH (09:28)
[2021-09-23] MEDS: Acetaminophen 325 MG TABLET PO PRN (11:40)
[2021-09-23 18:09] LABS: Hematocrit 24.9 % (35.3-44.9); Hemoglobin 7.8 g/dL (11.5-15.4)
[2021-09-24] MEDS: Insulin LISPRO 300 UNITS/3 ML VIAL SUBQ SCH ×6 (00:49→20:44)
[2021-09-24] MEDS: Nafcillin 2,000 MG in 0.9 % Sodium Chloride Mini Bag 100 ML IVPB SCH ×6 (00:50→20:49)
[2021-09-24 03:49] LABS: BUN/Creatinine Ratio 57 (6-26); Blood Urea Nitrogen 47 mg/dL (8-23); Calcium 7.9 mg/dL (8.6-10.3); Carbon Dioxide 34 mEq/L (23-29); Chloride 97 mEq/L (98-107); Glucose 82 mg/dL (70-105); Osmolality,Calculated 301 (280-300); Potassium 3.3 mEq/L (3.5-5.1); Sodium 140 mEq/L (136-145); eGFR For African Americans > 60 (> 60); eGFR For Non-African Americans > 60 (> 60)
[2021-09-24] MEDS: Ipratropium/Albuterol Neb 3 ML IH SCH ×4 (04:11→22:23)
[2021-09-24] MEDS: *HR* Enoxaparin 100 MG/ML SYRINGE SQ SCH ×2 (05:09→16:10)
[2021-09-24] MEDS: Ondansetron 4 MG/2 ML VIAL IVP PRN (05:45)
[2021-09-24 06:47] LABS: Basophils % 0.2 %; Eosinophils # 0.2 K/mcL (0.0-0.6); Eosinophils % 1.5 %; Hematocrit 25.5 % (35.3-44.9); Hemoglobin 8.3 g/dL (11.5-15.4); Immature Granulocytes % 2.8 % (0-4); Lymphocytes # 1.7 K/mcL (0.6-4.6); Lymphocytes % 12.5 %; Mean Corpuscular HGB Conc 32.5 g/dL (31.6-35.5); Mean Corpuscular Hemoglobin 30.1 pg (28.0-33.3); Mean Corpuscular Volume 92.4 fL (83.0-100.0); Monocytes # 0.8 K/mcL (0.0-1.3); Neutrophils # 10.6 K/mcL (1.6-8.9); Nucleated Red Blood Cells 10.9 /100 WBC (0); Platelet Count 325 K/mcL (140-400); Red Blood Count 2.76 M/mcL (3.82-4.97); Red Cell Distribution Width 17.3 % (11.5-14.5); White Blood Count 13.7 K/mcL (4.3-11.1)
[2021-09-24 07:21] LABS: Anisocytosis 1+ (Not Present); Platelet Estimate Normal (Normal); Polychromasia 1+ (Not Present)
[2021-09-24] MEDS: Aspirin Enteric Coated 81 MG Tablet PO SCH (07:48)
[2021-09-24] MEDS: FLUoxetine 20 MG CAPSULE PO SCH (07:48)
[2021-09-24] MEDS: Sennosides/Docusate Sodium TABLET PO SCH (07:48)
[2021-09-24] MEDS: Furosemide 40 MG TABLET PO SCH ×2 (07:48→16:10)
[2021-09-24] MEDS: Metoprolol XL (24 HR) Succ 25 MG TAB.ER.24H PO SCH (07:48)
[2021-09-24] MEDS: Insulin DETEMIR 100 UNIT/ML X5UNITS SUBQ SCH ×2 (07:48→20:44)
[2021-09-24] MEDS: Dexamethasone Sodium Phos/PF 10 MG/ML VIAL IVP SCH (09:23)
[2021-09-24] MEDS: Melatonin 3 MG TABLET PO PRN (20:50)
[2021-09-25] MEDS: Insulin LISPRO 300 UNITS/3 ML VIAL SUBQ SCH ×6 (00:23→21:32)
[2021-09-25] MEDS: Nafcillin 2,000 MG in 0.9 % Sodium Chloride Mini Bag 100 ML IVPB SCH ×6 (00:24→22:38)
[2021-09-25] MEDS ORDERED: hydrOXYzine pamoate 25 MG CAPSULE PO ONE (03:10)
[2021-09-25] MEDS: Ipratropium/Albuterol Neb 3 ML IH SCH ×4 (03:54→20:06)
[2021-09-25] MEDS: *HR* Enoxaparin 100 MG/ML SYRINGE SQ SCH ×2 (05:59→17:35)
[2021-09-25] MEDS: *HR* Dextrose 50 % in Water (Syg) 50 ML SYRINGE IVP PRN (07:17)
[2021-09-25 07:20] LABS: Basophils % 0.4 %; Eosinophils # 0.2 K/mcL (0.0-0.6); Eosinophils % 1.6 %; Hemoglobin 7.9 g/dL (11.5-15.4); Lymphocytes % 14.3 %; Mean Corpuscular HGB Conc 30.4 g/dL (31.6-35.5); Mean Corpuscular Hemoglobin 28.6 pg (28.0-33.3); Mean Corpuscular Volume 94.2 fL (83.0-100.0); Mean Platelet Volume 10.3 fL (9.4-12.4); Monocytes # 0.6 K/mcL (0.0-1.3); Monocytes % 5.3 %; Nucleated Red Blood Cells 10.5 /100 WBC (0); Platelet Count 343 K/mcL (140-400); Red Blood Count 2.76 M/mcL (3.82-4.97); Red Cell Distribution Width 17.8 % (11.5-14.5); Segmented Neutrophils % 75.4 %; White Blood Count 10.8 K/mcL (4.3-11.1)
[2021-09-25 07:26] LABS: Lymphocytes # 1.5 K/mcL (0.6-4.6); Neutrophils # 8.1 K/mcL (1.6-8.9)
[2021-09-25 07:43] LABS: BUN/Creatinine Ratio 54 (6-26); Blood Urea Nitrogen 57 mg/dL (8-23); Calcium 7.7 mg/dL (8.6-10.3); Carbon Dioxide 33 mEq/L (23-29); Chloride 93 mEq/L (98-107); Glucose 65 mg/dL (70-105); Osmolality,Calculated 300 (280-300); Potassium 2.5 mEq/L (3.5-5.1); Sodium 138 mEq/L (136-145); eGFR For African Americans > 60 (> 60); eGFR For Non-African Americans 51 (> 60)
[2021-09-25] MEDS: Sennosides/Docusate Sodium TABLET PO SCH (08:19)
[2021-09-25] MEDS: dexAMETHasone 4 MG TABLET PO SCH (08:19)
[2021-09-25] MEDS: Aspirin Enteric Coated 81 MG Tablet PO SCH (08:19)
[2021-09-25] MEDS: FLUoxetine 20 MG CAPSULE PO SCH (08:19)
[2021-09-25] MEDS: Furosemide 40 MG TABLET PO SCH (08:24)
[2021-09-25] MEDS: Insulin DETEMIR 100 UNIT/ML X5UNITS SUBQ SCH (08:26)
[2021-09-25] MEDS: Metoprolol XL (24 HR) Succ 25 MG TAB.ER.24H PO SCH (09:46)
[2021-09-25] MEDS: Acetaminophen 325 MG TABLET PO PRN ×2 (10:56→19:53)
[2021-09-25] MEDS ORDERED: Isovue-370 500 ML BOTTLE IVP ONE (13:47)
[2021-09-25 16:03] LABS: BUN/Creatinine Ratio 55 (6-26); Blood Urea Nitrogen 56 mg/dL (8-23); Calcium 7.2 mg/dL (8.6-10.3); Carbon Dioxide 30 mEq/L (23-29); Chloride 96 mEq/L (98-107); Glucose 170 mg/dL (70-105); Osmolality,Calculated 301 (280-300); Sodium 136 mEq/L (136-145); eGFR For African Americans > 60 (> 60); eGFR For Non-African Americans 53 (> 60)
[2021-09-25] MEDS ORDERED: Methyl Salicylate/Menthol 85 APPL/85 GM TUBE TP PRN (18:45)
[2021-09-26] MEDS: Insulin LISPRO 300 UNITS/3 ML VIAL SUBQ SCH ×7 (00:01→20:38)
[2021-09-26 00:27] LABS: Basophils % 0.2 %; Eosinophils # 0.2 K/mcL (0.0-0.6); Eosinophils % 1.6 %; Hematocrit 24.7 % (35.3-44.9); Hemoglobin 7.8 g/dL (11.5-15.4); Immature Granulocytes % 3.5 % (0-4); Lymphocytes # 1.4 K/mcL (0.6-4.6); Lymphocytes % 11.5 %; Mean Corpuscular HGB Conc 31.6 g/dL (31.6-35.5); Mean Corpuscular Hemoglobin 30.2 pg (28.0-33.3); Mean Corpuscular Volume 95.7 fL (83.0-100.0); Mean Platelet Volume 10.1 fL (9.4-12.4); Monocytes # 0.4 K/mcL (0.0-1.3); Monocytes % 3.7 %; Neutrophils # 9.4 K/mcL (1.6-8.9); Nucleated Red Blood Cells 7.4 /100 WBC (0); Platelet Count 352 K/mcL (140-400); Red Blood Count 2.58 M/mcL (3.82-4.97); Red Cell Distribution Width 18.3 % (11.5-14.5); Segmented Neutrophils % 79.5 %; White Blood Count 11.8 K/mcL (4.3-11.1)
[2021-09-26 00:46] LABS: BUN/Creatinine Ratio 61 (6-26); Blood Urea Nitrogen 50 mg/dL (8-23); Calcium 7.5 mg/dL (8.6-10.3); Carbon Dioxide 27 mEq/L (23-29); Chloride 99 mEq/L (98-107); Glucose 147 mg/dL (70-105); Magnesium 2.3 mg/dL (1.6-2.6); Osmolality,Calculated 302 (280-300); Phosphorous 3.5 mg/dL (2.7-4.5); Potassium 2.8 mEq/L (3.5-5.1); Sodium 138 mEq/L (136-145); eGFR For African Americans > 60 (> 60); eGFR For Non-African Americans > 60 (> 60)
[2021-09-26] MEDS: Nafcillin 2,000 MG in 0.9 % Sodium Chloride Mini Bag 100 ML IVPB SCH ×4 (02:44→15:43)
[2021-09-26] MEDS: Ipratropium/Albuterol Neb 3 ML IH SCH ×4 (03:40→20:17)
[2021-09-26] MEDS: *HR* Dextrose 50 % in Water (Syg) 50 ML SYRINGE IVP PRN (04:00)
[2021-09-26] MEDS: Ondansetron 4 MG/2 ML VIAL IVP PRN (05:17)
[2021-09-26] MEDS: *HR* Enoxaparin 100 MG/ML SYRINGE SQ SCH ×2 (05:24→17:49)
[2021-09-26] MEDS: Sennosides/Docusate Sodium TABLET PO SCH ×2 (08:03→08:35)
[2021-09-26] MEDS: Aspirin Enteric Coated 81 MG Tablet PO SCH (08:03)
[2021-09-26] MEDS: dexAMETHasone 4 MG TABLET PO SCH (08:03)
[2021-09-26] MEDS: Metoprolol XL (24 HR) Succ 25 MG TAB.ER.24H PO SCH (08:03)
[2021-09-26] MEDS: FLUoxetine 20 MG CAPSULE PO SCH (08:03)
[2021-09-26] MEDS ORDERED: Potassium Chloride Elixir 20 MEQ/15 ML UDC PO ONE (10:02)
[2021-09-26 11:13] LABS: BUN/Creatinine Ratio 56 (6-26); Blood Urea Nitrogen 49 mg/dL (8-23); Calcium 7.5 mg/dL (8.6-10.3); Carbon Dioxide 32 mEq/L (23-29); Chloride 97 mEq/L (98-107); Glucose 104 mg/dL (70-105); Osmolality,Calculated 299 (280-300); Potassium 2.9 mEq/L (3.5-5.1); Sodium 138 mEq/L (136-145); eGFR For African Americans > 60 (> 60); eGFR For Non-African Americans > 60 (> 60)
[2021-09-26] MEDS ORDERED: *HR* LORazepam 2 MG/ML VIAL IVP ONE (13:37)
[2021-09-26] MEDS: CeFAZolin 2,000 MG/120 ML BAG IVPB SCH (23:05)
[2021-09-27 02:37] LABS: Hematocrit 24.3 % (35.3-44.9); Hemoglobin 7.1 g/dL (11.5-15.4); Mean Corpuscular HGB Conc 29.2 g/dL (31.6-35.5); Mean Corpuscular Hemoglobin 29.1 pg (28.0-33.3); Mean Corpuscular Volume 99.6 fL (83.0-100.0); Mean Platelet Volume 10.1 fL (9.4-12.4); Nucleated Red Blood Cells 9.9 /100 WBC (0); Platelet Count 342 K/mcL (140-400); Red Blood Count 2.44 M/mcL (3.82-4.97); Red Cell Distribution Width 20.3 % (11.5-14.5); White Blood Count 13.1 K/mcL (4.3-11.1)
[2021-09-27 02:54] LABS: BUN/Creatinine Ratio 61 (6-26); Blood Urea Nitrogen 43 mg/dL (8-23); Calcium 7.4 mg/dL (8.6-10.3); Carbon Dioxide 28 mEq/L (23-29); Chloride 101 mEq/L (98-107); Glucose 140 mg/dL (70-105); Osmolality,Calculated 297 (280-300); Potassium 4.5 mEq/L (3.5-5.1); Sodium 137 mEq/L (136-145); eGFR For African Americans > 60 (> 60); eGFR For Non-African Americans > 60 (> 60)
[2021-09-27 03:33] LABS: Anisocytosis 2+ (Not Present); Hypochromasia Present (Not Present); Lymphocytes # 1.6 K/mcL (0.6-4.6); Monocytes # 0.3 K/mcL (0.0-1.3); Neutrophils # 11.3 K/mcL (1.6-8.9)
[2021-09-27 03:34] LABS: Platelet Estimate Normal (Normal); Polychromasia 1+ (Not Present); Reactive Lymphocytes Present (Not Present); Stomatocytes 1+ (Not Present)
[2021-09-27] MEDS: Ipratropium/Albuterol Neb 3 ML IH SCH ×4 (03:37→20:21)
[2021-09-27] MEDS: *HR* Enoxaparin 100 MG/ML SYRINGE SQ SCH ×2 (04:58→17:28)
[2021-09-27] MEDS: Ondansetron 4 MG/2 ML VIAL IVP PRN (04:58)
[2021-09-27 07:35] LABS: Adenovirus F 40/41 PCR Not detected (Not detect); Astrovirus PCR Not detected (Not detect); C.difficile Toxin A/B Gene PCR Not detected (Not detect); Campylobacter by PCR Not detected (Not detect); Cryptosporidium by PCR Not detected (Not detect); Cyclospora cayetanensis PCR Not detected (Not detect); E. coli O157 by PCR Not detected (Not detect); Entamoeba histolytica PCR Not detected (Not detect); Enteroaggregative E.coli(EAEC) Not detected (Not detect); Enteropathogenic E.coli(EPEC) Not detected (Not detect); Enterotoxigenic E.coli (ETEC) Not detected (Not detect); Giardia lamblia PCR Not detected (Not detect); Norovirus GI/GII PCR Not detected (Not detect); Plesiomonas shigelloides PCR Not detected (Not detect); Rotavirus A PCR Not detected (Not detect); Salmonella PCR Not detected (Not detect); Sapovirus PCR Not detected (Not detect); Shig/EnteroinvasiveE coli EIEC Not detected (Not detect); Shigalike tox-prod E coli STEC Not detected (Not detect); Vibrio PCR Not detected (Not detect); Vibrio cholerae PCR Not detected (Not detect); Yersinia enterocolitica PCR Not detected (Not detect)
[2021-09-27 07:39] LABS: Bilirubin,Urine Negative (Negative); Blood,Urine Negative (Negative); Budding Yeast,Urine Moderate per hpf (None Seen); Clarity,Urine Clear (Clear); Color,Urine Yellow (Yellow); Glucose,Urine (UA) Normal (Normal); Ketones,Urine Trace mg/dL (Negative); Leukocyte Esterase,Urine Trace (Negative); Nitrite,Urine Negative (Negative); Protein,Urine 30 mg/dL (Neg-Trace); Specific Gravity,Urine 1.027 (1.010-1.025); Squamous Epithelial Cell,Urine Few per hpf (None-Few); Urobilinogen,Urine Normal (Normal)
[2021-09-27] MEDS: FLUoxetine 20 MG CAPSULE PO SCH (10:24)
[2021-09-27] MEDS: Aspirin Enteric Coated 81 MG Tablet PO SCH (10:24)
[2021-09-27] MEDS: Sennosides/Docusate Sodium TABLET PO SCH ×2 (10:24→10:28)
[2021-09-27] MEDS: Metoprolol XL (24 HR) Succ 25 MG TAB.ER.24H PO SCH (10:24)
[2021-09-27] MEDS: dexAMETHasone 4 MG TABLET PO SCH (10:24)
[2021-09-27] MEDS: CeFAZolin 2,000 MG/120 ML BAG IVPB SCH ×2 (10:26→17:20)
[2021-09-27] MEDS: Insulin LISPRO 300 UNITS/3 ML VIAL SUBQ SCH ×4 (10:28→21:38)
[2021-09-27] MEDS: Morphine Sulfate 2 MG/ML SYRINGE IVP PRN (21:38)
[2021-09-27] MEDS: Melatonin 3 MG TABLET PO PRN (21:39)
[2021-09-28] MEDS: CeFAZolin 2,000 MG/120 ML BAG IVPB SCH ×3 (00:16→17:36)
[2021-09-28] MEDS: Ipratropium/Albuterol Neb 3 ML IH SCH ×4 (04:04→20:35)
[2021-09-28] MEDS: *HR* Enoxaparin 100 MG/ML SYRINGE SQ SCH ×2 (06:33→17:59)
[2021-09-28 06:49] LABS: Hemoglobin 6.3 g/dL (11.5-15.4); Mean Corpuscular Hemoglobin 30.6 pg (28.0-33.3); Mean Corpuscular Volume 101.9 fL (83.0-100.0); Mean Platelet Volume 9.9 fL (9.4-12.4); Nucleated Red Blood Cells 13.5 /100 WBC (0); Platelet Count 327 K/mcL (140-400); Red Blood Count 2.06 M/mcL (3.82-4.97); Red Cell Distribution Width 21.4 % (11.5-14.5); White Blood Count 15.3 K/mcL (4.3-11.1)
[2021-09-28 06:58] LABS: BUN/Creatinine Ratio 58 (6-26); Blood Urea Nitrogen 34 mg/dL (8-23); Calcium 7.6 mg/dL (8.6-10.3); Carbon Dioxide 29 mEq/L (23-29); Chloride 101 mEq/L (98-107); Glucose 143 mg/dL (70-105); Osmolality,Calculated 290 (280-300); Potassium 4.1 mEq/L (3.5-5.1); Sodium 135 mEq/L (136-145); eGFR For African Americans > 60 (> 60); eGFR For Non-African Americans > 60 (> 60)
[2021-09-28 07:09] LABS: Anisocytosis 2+ (Not Present)
[2021-09-28 07:10] LABS: Basophilic Stippling 2+ (Not Present); Polychromasia 2+ (Not Present)
[2021-09-28 07:15] LABS: Eosinophils # 0.3 K/mcL (0.0-0.6); Large Platelets Present (Not Present); Lymphocytes # 0.3 K/mcL (0.6-4.6); Neutrophils # 14.1 K/mcL (1.6-8.9)
[2021-09-28 07:16] LABS: Platelet Estimate Normal (Normal)
[2021-09-28] MEDS: Insulin LISPRO 300 UNITS/3 ML VIAL SUBQ SCH ×4 (09:08→21:36)
[2021-09-28] MEDS: dexAMETHasone 4 MG TABLET PO SCH (09:09)
[2021-09-28] MEDS: Aspirin Enteric Coated 81 MG Tablet PO SCH (09:09)
[2021-09-28] MEDS: Furosemide 20 MG TABLET PO SCH (09:09)
[2021-09-28] MEDS: Metoprolol XL (24 HR) Succ 25 MG TAB.ER.24H PO SCH (09:09)
[2021-09-28] MEDS: FLUoxetine 20 MG CAPSULE PO SCH (09:09)
[2021-09-28] MEDS: Sennosides/Docusate Sodium TABLET PO SCH (09:10)
[2021-09-28] MEDS ORDERED: 0.9 % Sodium Chloride 250 ML IVC SCH (10:30)
[2021-09-28] MEDS ORDERED: *HR* LORazepam 2 MG/ML VIAL IVP PRN (11:31)
[2021-09-28] MEDS: Morphine Sulfate 2 MG/ML SYRINGE IVP PRN (14:22)
[2021-09-28] MEDS ORDERED: Haloperidol Lactate 5 MG/ML VIAL IVP ONE (16:13)
[2021-09-28 18:12] LABS: Eosinophils # 0.3 K/mcL (0.0-0.6); Hematocrit 24.6 % (35.3-44.9); Hemoglobin 7.5 g/dL (11.5-15.4); Mean Corpuscular HGB Conc 30.5 g/dL (31.6-35.5); Mean Corpuscular Hemoglobin 29.2 pg (28.0-33.3); Mean Platelet Volume 9.7 fL (9.4-12.4); Nucleated Red Blood Cells 15.4 /100 WBC (0); Platelet Count 280 K/mcL (140-400); Red Blood Count 2.57 M/mcL (3.82-4.97); Red Cell Distribution Width 21.6 % (11.5-14.5); White Blood Count 16.9 K/mcL (4.3-11.1)
[2021-09-28 18:14] LABS: Mean Corpuscular Volume 95.7 fL (83.0-100.0)
[2021-09-28 18:34] LABS: Lymphocytes # 1.4 K/mcL (0.6-4.6); Neutrophils # 15.2 K/mcL (1.6-8.9)
[2021-09-28 18:35] LABS: Polychromasia 2+ (Not Present)
[2021-09-28 18:36] LABS: Large Platelets Present (Not Present); Smudge Cells Present (Not Present)
[2021-09-28] MEDS: QUEtiapine Fumarate 25 MG TABLET PO SCH (21:35)
[2021-09-29] MEDS: CeFAZolin 2,000 MG/120 ML BAG IVPB SCH ×3 (00:32→17:09)
[2021-09-29] MEDS ORDERED: Haloperidol Lactate 5 MG/ML VIAL IVP ONE (00:41)
[2021-09-29] MEDS: Ipratropium/Albuterol Neb 3 ML IH SCH ×2 (04:25→10:33)
[2021-09-29] MEDS: *HR* Enoxaparin 100 MG/ML SYRINGE SQ SCH ×2 (05:57→17:09)
[2021-09-29 06:08] LABS: Eosinophils # 0.3 K/mcL (0.0-0.6); Hematocrit 23.7 % (35.3-44.9); Hemoglobin 7.1 g/dL (11.5-15.4); Mean Corpuscular Hemoglobin 29.1 pg (28.0-33.3); Mean Corpuscular Volume 97.1 fL (83.0-100.0); Mean Platelet Volume 9.7 fL (9.4-12.4); Monocytes # 0.3 K/mcL (0.0-1.3); Nucleated Red Blood Cells 13.4 /100 WBC (0); Platelet Count 263 K/mcL (140-400); Red Blood Count 2.44 M/mcL (3.82-4.97); Red Cell Distribution Width 23.9 % (11.5-14.5); White Blood Count 14.9 K/mcL (4.3-11.1)
[2021-09-29 06:28] LABS: Alanine Aminotransferase 10 Units/L (7-52); Albumin 2.4 g/dL (3.5-5.7); Albumin/Globulin Ratio 0.9 (1.1-2.2); Alkaline Phosphatase 81 Units/L (34-104); Aspartate Amino Transferase 33 Units/L (13-39); BUN/Creatinine Ratio 53 (6-26); Bilirubin,Direct 0.3 mg/dL (0.0-0.2); Bilirubin,Indirect 0.8 mg/dL (0.0-1.0); Bilirubin,Total 1.1 mg/dL (0.3-1.0); Blood Urea Nitrogen 23 mg/dL (8-23); Calcium 7.7 mg/dL (8.6-10.3); Carbon Dioxide 29 mEq/L (23-29); Chloride 102 mEq/L (98-107); Globulin 2.7 g/dL (2.4-3.5); Glucose 99 mg/dL (70-105); Lactate Dehydrogenase 533 Units/L (140-271); Magnesium 2.1 mg/dL (1.6-2.6); Osmolality,Calculated 288 (280-300); Potassium 3.9 mEq/L (3.5-5.1); Sodium 137 mEq/L (136-145); Total Protein 5.1 g/dL (6.4-8.9); eGFR For African Americans > 60 (> 60); eGFR For Non-African Americans > 60 (> 60)
[2021-09-29 07:55] LABS: Lymphocytes # 1.2 K/mcL (0.6-4.6); Neutrophils # 11.9 K/mcL (1.6-8.9); Platelet Estimate Normal (Normal)
[2021-09-29 07:56] LABS: Anisocytosis 2+ (Not Present)
[2021-09-29] MEDS: Insulin LISPRO 300 UNITS/3 ML VIAL SUBQ SCH ×4 (08:14→23:30)
[2021-09-29] MEDS: Aspirin Enteric Coated 81 MG Tablet PO SCH (09:15)
[2021-09-29] MEDS: FLUoxetine 20 MG CAPSULE PO SCH (09:15)
[2021-09-29] MEDS: Metoprolol XL (24 HR) Succ 25 MG TAB.ER.24H PO SCH (09:16)
[2021-09-29] MEDS: Sennosides/Docusate Sodium TABLET PO SCH (09:16)
[2021-09-29] MEDS: Furosemide 20 MG TABLET PO SCH (09:16)
[2021-09-29] MEDS: dexAMETHasone 4 MG TABLET PO SCH (09:16)
[2021-09-29] MEDS: Levalbuterol Neb 1.25 MG/3 ML IH SCH ×2 (16:51→19:54)
[2021-09-29] MEDS: QUEtiapine Fumarate 25 MG TABLET PO SCH (20:39)
[2021-09-29] MEDS: Melatonin 3 MG TABLET PO PRN (20:39)
[2021-09-30] MEDS: CeFAZolin 2,000 MG/120 ML BAG IVPB SCH ×3 (00:58→16:38)
[2021-09-30] MEDS: Levalbuterol Neb 1.25 MG/3 ML IH SCH ×4 (03:51→20:09)
[2021-09-30] MEDS: Acetaminophen 325 MG TABLET PO PRN (04:29)
[2021-09-30] MEDS: *HR* Enoxaparin 100 MG/ML SYRINGE SQ SCH ×2 (04:43→16:39)
[2021-09-30 06:02] LABS: Hematocrit 23.9 % (35.3-44.9); Hemoglobin 7.1 g/dL (11.5-15.4); Mean Corpuscular HGB Conc 29.7 g/dL (31.6-35.5); Mean Corpuscular Hemoglobin 29.8 pg (28.0-33.3); Mean Corpuscular Volume 100.4 fL (83.0-100.0); Mean Platelet Volume 9.8 fL (9.4-12.4); Platelet Count 227 K/mcL (140-400); Red Blood Count 2.38 M/mcL (3.82-4.97); Red Cell Distribution Width 25.8 % (11.5-14.5); White Blood Count 10.3 K/mcL (4.3-11.1)
[2021-09-30 06:17] LABS: Alanine Aminotransferase 7 Units/L (7-52); Albumin 2.3 g/dL (3.5-5.7); Albumin/Globulin Ratio 0.8 (1.1-2.2); Alkaline Phosphatase 77 Units/L (34-104); Aspartate Amino Transferase 27 Units/L (13-39); BUN/Creatinine Ratio 43 (6-26); Blood Urea Nitrogen 20 mg/dL (8-23); Calcium 7.7 mg/dL (8.6-10.3); Carbon Dioxide 29 mEq/L (23-29); Chloride 103 mEq/L (98-107); Globulin 2.8 g/dL (2.4-3.5); Glucose 100 mg/dL (70-105); Osmolality,Calculated 289 (280-300); Potassium 3.5 mEq/L (3.5-5.1); Sodium 138 mEq/L (136-145); Total Protein 5.1 g/dL (6.4-8.9); eGFR For African Americans > 60 (> 60); eGFR For Non-African Americans > 60 (> 60)
[2021-09-30] MEDS: dexAMETHasone 4 MG TABLET PO SCH (07:31)
[2021-09-30] MEDS: Aspirin Enteric Coated 81 MG Tablet PO SCH (07:31)
[2021-09-30] MEDS: FLUoxetine 20 MG CAPSULE PO SCH (07:31)
[2021-09-30] MEDS: Metoprolol XL (24 HR) Succ 25 MG TAB.ER.24H PO SCH (07:32)
[2021-09-30] MEDS: Furosemide 20 MG TABLET PO SCH (07:32)
[2021-09-30] MEDS: Insulin LISPRO 300 UNITS/3 ML VIAL SUBQ SCH ×4 (07:32→20:07)
[2021-09-30] MEDS: Sennosides/Docusate Sodium TABLET PO SCH (07:53)
[2021-09-30] MEDS: Tiotropium 10 INH DOSE IH SCH (09:52)
[2021-09-30] MEDS ORDERED: hydrOXYzine pamoate 25 MG CAPSULE PO ONE (20:15)
[2021-09-30] MEDS: QUEtiapine Fumarate 25 MG TABLET PO SCH (20:59)
[2021-09-30] MEDS: Melatonin 3 MG TABLET PO PRN (20:59)
[2021-10-01] MEDS: CeFAZolin 2,000 MG/120 ML BAG IVPB SCH ×3 (00:44→16:36)
[2021-10-01] MEDS: Morphine Sulfate 2 MG/ML SYRINGE IVP PRN (02:59)
[2021-10-01] MEDS: Levalbuterol Neb 1.25 MG/3 ML IH SCH ×4 (03:20→21:01)
[2021-10-01 06:02] LABS: Basophils % 0.2 %; Eosinophils # 0.2 K/mcL (0.0-0.6); Hematocrit 25.4 % (35.3-44.9); Hemoglobin 7.7 g/dL (11.5-15.4); Immature Granulocytes % 2.7 % (0-4); Lymphocytes # 1.1 K/mcL (0.6-4.6); Lymphocytes % 13.1 %; Mean Corpuscular HGB Conc 30.3 g/dL (31.6-35.5); Mean Corpuscular Hemoglobin 30.6 pg (28.0-33.3); Mean Corpuscular Volume 100.8 fL (83.0-100.0); Mean Platelet Volume 9.9 fL (9.4-12.4); Monocytes # 0.3 K/mcL (0.0-1.3); Monocytes % 3.2 %; Neutrophils # 6.4 K/mcL (1.6-8.9); Nucleated Red Blood Cells 4.3 /100 WBC (0); Platelet Count 230 K/mcL (140-400); Red Blood Count 2.52 M/mcL (3.82-4.97); Red Cell Distribution Width 27.6 % (11.5-14.5); Segmented Neutrophils % 78.8 %; White Blood Count 8.1 K/mcL (4.3-11.1)
[2021-10-01] MEDS: *HR* Enoxaparin 100 MG/ML SYRINGE SQ SCH ×2 (06:21→18:59)
[2021-10-01 06:24] LABS: BUN/Creatinine Ratio 39 (6-26); Blood Urea Nitrogen 17 mg/dL (8-23); Calcium 7.7 mg/dL (8.6-10.3); Carbon Dioxide 29 mEq/L (23-29); Chloride 103 mEq/L (98-107); Glucose 98 mg/dL (70-105); Osmolality,Calculated 284 (280-300); Potassium 3.3 mEq/L (3.5-5.1); Sodium 136 mEq/L (136-145); eGFR For African Americans > 60 (> 60); eGFR For Non-African Americans > 60 (> 60)
[2021-10-01 06:41] LABS: Anisocytosis 2+ (Not Present); Macrocytosis Present (Not Present); Polychromasia 1+ (Not Present)
[2021-10-01 06:42] LABS: Basophilic Stippling 1+ (Not Present); Platelet Estimate Normal (Normal)
[2021-10-01] MEDS: Insulin LISPRO 300 UNITS/3 ML VIAL SUBQ SCH ×4 (09:23→20:08)
[2021-10-01] MEDS: Sennosides/Docusate Sodium TABLET PO SCH (09:31)
[2021-10-01] MEDS: FLUoxetine 20 MG CAPSULE PO SCH (09:35)
[2021-10-01] MEDS: Aspirin Enteric Coated 81 MG Tablet PO SCH (09:35)
[2021-10-01] MEDS: dexAMETHasone 4 MG TABLET PO SCH (09:35)
[2021-10-01] MEDS: Furosemide 20 MG TABLET PO SCH (09:36)
[2021-10-01] MEDS: Metoprolol XL (24 HR) Succ 25 MG TAB.ER.24H PO SCH (09:36)
[2021-10-01] MEDS: Tiotropium 10 INH DOSE IH SCH (10:04)
[2021-10-01 15:15] LABS: Influenza A PCR Negative (Negative); Influenza B PCR Negative (Negative); Resp. Syncytial Virus PCR Negative (Negative)
[2021-10-01 15:32] LABS: SARS-CoV-2 by PCR (In House) Negative (Negative)
[2021-10-01 17:29] LABS: Potassium 3.4 mEq/L (3.5-5.1)
[2021-10-01] MEDS: QUEtiapine Fumarate 25 MG TABLET PO SCH (20:38)
[2021-10-02] MEDS: CeFAZolin 2,000 MG/120 ML BAG IVPB SCH ×2 (00:10→08:15)
[2021-10-02] MEDS: Acetaminophen 325 MG TABLET PO PRN (02:19)
[2021-10-02] MEDS: Levalbuterol Neb 1.25 MG/3 ML IH SCH ×3 (04:14→15:32)
[2021-10-02 06:57] LABS: Hemoglobin 7.9 g/dL (11.5-15.4); Nucleated Red Blood Cells 2.1 /100 WBC (0); Platelet Count 199 K/mcL (140-400)
[2021-10-02 06:59] LABS: Basophils % 0.3 %; Eosinophils # 0.2 K/mcL (0.0-0.6); Eosinophils % 2.1 %; Hematocrit 26.1 % (35.3-44.9); Immature Granulocytes % 1.6 % (0-4); Lymphocytes # 1.1 K/mcL (0.6-4.6); Lymphocytes % 15.5 %; Mean Corpuscular HGB Conc 30.3 g/dL (31.6-35.5); Mean Corpuscular Hemoglobin 31.3 pg (28.0-33.3); Mean Corpuscular Volume 103.6 fL (83.0-100.0); Mean Platelet Volume 9.8 fL (9.4-12.4); Monocytes # 0.3 K/mcL (0.0-1.3); Monocytes % 4.1 %; Neutrophils # 5.6 K/mcL (1.6-8.9); Red Blood Count 2.52 M/mcL (3.82-4.97); Red Cell Distribution Width 28.7 % (11.5-14.5); Segmented Neutrophils % 76.4 %; White Blood Count 7.3 K/mcL (4.3-11.1)
[2021-10-02 07:20] LABS: BUN/Creatinine Ratio 39 (6-26); Blood Urea Nitrogen 15 mg/dL (8-23); Calcium 7.6 mg/dL (8.6-10.3); Carbon Dioxide 25 mEq/L (23-29); Chloride 103 mEq/L (98-107); Glucose 131 mg/dL (70-105); Osmolality,Calculated 283 (280-300); Potassium 3.4 mEq/L (3.5-5.1); Sodium 135 mEq/L (136-145); eGFR For African Americans > 60 (> 60); eGFR For Non-African Americans > 60 (> 60)
[2021-10-02] MEDS: FLUoxetine 20 MG CAPSULE PO SCH (07:46)
[2021-10-02] MEDS: Sennosides/Docusate Sodium TABLET PO SCH (07:47)
[2021-10-02] MEDS: dexAMETHasone 4 MG TABLET PO SCH (07:47)
[2021-10-02] MEDS: Aspirin Enteric Coated 81 MG Tablet PO SCH (07:48)
[2021-10-02] MEDS: Furosemide 20 MG TABLET PO SCH (07:48)
[2021-10-02] MEDS: Metoprolol XL (24 HR) Succ 25 MG TAB.ER.24H PO SCH (07:48)
[2021-10-02] MEDS: Insulin LISPRO 300 UNITS/3 ML VIAL SUBQ SCH ×2 (07:59→11:31)
[2021-10-02] MEDS: Tiotropium 10 INH DOSE IH SCH (09:37)
[2021-10-02 11:28] VITALS: BP 125/78; PULSE 79; TEMP 97.7; O2SAT 94
== END 2021-10-02 17:00 | disposition other institution (70) | DRG 871 ==
LOC: EMEROOARM 20:17 → 2NNU 20:17 → SUATTDRO 08-27 15:54 → 3NENU 09-19 17:58 → 2ANU 10-02 15:48 → 3NENU 10-02 15:56
PROVIDERS: ADMIT Internal Medicine; ATTEND Internal Medicine